=== PATIENT | female | born 1955 | race Caucasian/White ===

== ENCOUNTER 2017-03-19 11:17 | Inpatient (IN) ==
--- NOTE | 2017-03-19 16:35 | Emergency Department Note ---
Disposition Clinical Impression: Unstable angina Hypertension Qualifiers: Hypertension type: unspecified Qualified Code(s): I10 - Essential (primary) hypertension Disposition: Admitted As Inpatient Condition: Fair Time of Disposition: 19:25 General Adult HPI - General Chief complaint: ED Extremity Problem,Nontraumatic Stated complaint: bilat leg swelling Time Seen by Provider: 03/19/17 15:32 Source: patient Mode of arrival: ambulatory Limitations: no limitations Nursing Notes Reviewed: Yes Vital Signs Reviewed: Yes - History of Present Illness HPI Narrative: 62-year-old female presents to the emergency department for increasing bilateral pedal edema as well as elevated blood pressures as measured by home BP cuff. Patient cites systolic pressures above 200 at home; patient also states that usually has some measure of pedal edema, but that has been worse lately. For about a week, patient tells me that she does have a sore sensation in her left anterolateral chest wall that has been constantly present for about 6 days; this particular soreness is not provoked motion or exertion and patient denies any palliative factors, and does not radiate to arms or shoulders/jaw. Patient does state that within the last month, she had an episode of severe chest pain radiating into her back during which time she had diaphoresis, headache, and nausea. Did not have cardiovascular assessment at that time. Denies new headache, blurred vision, syncope, confusion, retro sternal chest pain, palpitations, acute shortness of air, nausea, vomiting, or dysuria. No known active malignancy, no limb paralysis, no recent surgeries or other ambulatory limitations, no localized tenderness in her lower extremities, no previous DVT, or hemoptysis. Legs are also equally edematous. Wells DVT: 0 Wells PE: 0 Pain Scale: 0 - Related Data Home Medications Medication Instructions Recorded Confirmed Fluticasone/Salmeterol [Advair 1 each IH BID 04/09/15 03/19/17 250-50 Diskus] Ibuprofen [Motrin] 800 mg PO Q8HR 04/09/15 03/19/17 LORazepam [Ativan] 0.5 mg PO BID PRN 04/09/15 03/19/17 Montelukast [Singulair] 10 mg PO QPM 04/09/15 03/19/17 Albuterol Sulfate [Proair Hfa] 2 puff IH Q4H PRN 03/19/17 03/19/17 Aspirin Enteric Coated [Aspirin EC] 81 mg PO DAILY 03/19/17 03/19/17 Furosemide [Lasix] 40 mg PO DAILY 03/19/17 03/19/17 Lisinopril [Zestril] 40 mg PO DAILY 03/19/17 03/19/17 Metoprolol Succinate 100 mg PO QPM 03/19/17 03/19/17 Tizanidine HCl 4 mg PO BID PRN 03/19/17 03/19/17 Allergies Allergy/AdvReac Type Severity Reaction Status Date / Time codeine Allergy Hives Verified 07/18/15 01:53 Penicillins [PCN] Allergy Hives Verified 04/09/15 01:16 Review of Systems: As Per HPI Past Medical History - Past Medical History Attestation: Yes The following information was validated with the patient. Medical history: Reports: aortic aneurysm, asthma, COPD, GERD, hyperlipidemia, hypertension Surgical history: Reports: orthopedic, other Psychiatric history: Reports: anxiety [employer] history: Reports: bilateral tubal ligation - Social History Smoking Status: Current every day smoker Smokeless Tobacco Status: No Alcohol use: Reports: occasionally Drug use: Reports: none Physical Exam - General Limitations: no limitations General appearance: alert, in no apparent distress - Head Head exam: atraumatic - Eye Eye exam: Present: PERRL, EOMI. Absent: scleral icterus, conjunctival injection - ENT ENT exam: mucous membranes moist - Neck Neck exam: Present: full ROM - Respiratory Respiratory exam: Present: normal lung sounds bilaterally - Cardiovascular Cardiovascular exam: Present: regular rate, normal rhythm. Absent: systolic murmur, diastolic murmur, +S3, +S4 - Abdominal Exam Abdominal exam: Present: soft - Extremities Exam Extremities exam: Present: normal capillary refill, pedal edema (No erythema, rubor, calor, or hemostatic skin color change). Absent: calf tenderness - Neurological Exam Neurological exam: Present: alert, oriented X3, normal gait. Absent: motor sensory deficit - Psychiatric Psychiatric exam: Present: normal affect - Skin Skin exam: Present: warm, dry, intact. Absent: cyanosis, diaphoresis, erythema , pallor Course Course Narrative: Ordered EKG which demonstrated new findings compared to prior EKG in July 2016; notably inverted T waves and multiple leads. Troponin negative. No acute cardiovascular equivalents. Hemoglobin, basic, troponin, and BNP are all within normal limits. Chest x-ray is negative. Patient was given sublingual nitro which did improve chest pain. Vital Signs Temperature 98 F 03/19/17 12:02 Pulse Rate 83 03/19/17 12:02 Respiratory Rate 18 03/19/17 12:02 Blood Pressure 191/106 03/19/17 12:02 O2 Sat by Pulse Oximetry 93 03/19/17 12:02 Temperature 97.5 F L 03/19/17 20:46 Pulse Rate 78 03/19/17 20:46 Respiratory Rate 17 03/19/17 20:46 Blood Pressure 211/113 03/19/17 20:46 O2 Sat by Pulse Oximetry 95 03/19/17 20:46 Oxygen Delivery Oxygen Delivery Nasal Cannula Medical Decision Making - MDM Narrative Medical decision making narrative: 3 EKG evidence of prior [place] as well as concerning previous episode within the month, patient would benefit from immediate evaluation by cardiology for acute coronary artery disease. I feel the patient is unsafe at this time to be sent home due to unknown degree of risk of recurrent and potentially fatal myocardial infarction. HEART score = 4. Discussed patient with hospitalist, Dr. Haddad, who agrees to admit patient for observation and cardiology consult. - Lab Data Lab results reviewed: Yes I reviewed the patient's lab results. Lab results narrative: Laboratory Last Values Hgb 15.1 g/dL (11.5-15.4) 03/19/17 16:57 Sodium 142 mEq/L (136-145) 03/19/17 16:57 Potassium 3.2 mEq/L (3.5-4.5) L 03/19/17 16:57 Chloride 105 mEq/L (98-109) 03/19/17 16:57 Carbon Dioxide 26 mEq/L (19-29) 03/19/17 16:57 BUN 15 mg/dL (7-20) 03/19/17 16:57 Creatinine 0.74 mg/dL (0.57-1.11) 03/19/17 16:57 Est GFR ( Amer) > 60 (> 60) 03/19/17 16:57 Est GFR (Non-Af Amer) > 60 (> 60) 03/19/17 16:57 BUN/Creatinine Ratio 20 (6-26) 03/19/17 16:57 Glucose 108 mg/dL (70-99) H 03/19/17 16:57 Calculated Osmolality 295 (280-300) 03/19/17 16:57 Calcium 9.3 mg/dL (8.6-10.8) 03/19/17 16:57 Troponin I 0.00 ng/mL (0-0.03) 03/19/17 16:57 B-Natriuretic Peptide 135 pg/mL (0-100) H 03/19/17 16:57 Result diagrams: 03/19/17 16:57 03/19/17 16:57 Lab Results 03/19/17 03/19/17 03/19/17 Range/Units 16:57 16:57 16:57 Hgb 15.1 (11.5-15.4) g/dL Sodium 142 (136-145) mEq/L Potassium 3.2 L (3.5-4.5) mEq/L Chloride 105 (98-109) mEq/L Carbon Dioxide 26 (19-29) mEq/L BUN 15 (7-20) mg/dL Creatinine 0.74 (0.57-1.11) mg/dL Est GFR ( Amer) > 60 (> 60) Est GFR (Non-Af Amer) > 60 (> 60) BUN/Creatinine Ratio 20 (6-26) Glucose 108 H (70-99) mg/dL Calculated Osmolality 295 (280-300) Calcium 9.3 (8.6-10.8) mg/dL Troponin I 0.00 (0-0.03) ng/mL B-Natriuretic Peptide (0-100) pg/mL 03/19/17 Range/Units 16:57 Hgb (11.5-15.4) g/dL Sodium (136-145) mEq/L Potassium (3.5-4.5) mEq/L Chloride (98-109) mEq/L Carbon Dioxide (19-29) mEq/L BUN (7-20) mg/dL Creatinine (0.57-1.11) mg/dL Est GFR ( Amer) (> 60) Est GFR (Non-Af Amer) (> 60) BUN/Creatinine Ratio (6-26) Glucose (70-99) mg/dL Calculated Osmolality (280-300) Calcium (8.6-10.8) mg/dL Troponin I (0-0.03) ng/mL B-Natriuretic Peptide 135 H (0-100) pg/mL - Radiology Data Radiology results reviewed: Yes I reviewed the patient's radiology results. Chest X-Ray 03/19/17 16:42 IMPRESSION: No acute cardiopulmonary process. D/ / 03/19/2017 17:53:34 Crystal Pena MD / Tyra Skinner Interpreting Provider: Crystal Pena MD - Core Measures AMI Core Measures Followed: No Measure Exclusions: not indicated
[2017-03-19] MEDS ORDERED: Aspirin 81 MG TAB.CHEW PO STA (16:42)
--- NOTE | 2017-03-19 16:47 | Emergency Department Note ---
START Narrative - START START: I examined this patient and my medical decision-making was reviewed with the Resident Physician. I agree with the documented findings, disposition and treatment plan as described except to the extent set forth below. Pain as she has had for the last week under her left costal margin does not sound at all ischemic. However, she had an episode about a month ago that sounds very concerning for ischemic event. She did not present to the ED at that time, says "I figured I lived, so I will just a home." She told me she thinks this was a heart attack. She had chest pain and back pain and broke out in a sweat, sounds concerning. Since then, she has had severe fatigue, developed lower extremity swelling to the point that she could not get her shoes on. She says the swelling is improved over the last few days. Today she comes in because her blood pressure was markedly elevated, although she had developed no new symptoms with his blood pressure elevation. Her EKG shows Q waves in the inferior leads and nonspecific T-wave changes in the inferior leads that are new compared to her prior EKG in July of this year. She seems somewhat dyspneic, relates this to her cigarette smoking. Says that her breathing is not changed compared to her baseline. I am very suspicious that she had an TN a month ago, as she also believes that she did. Workup has been initiated, aspirin has been ordered.
[2017-03-19 17:26] LABS: BUN/Creatinine Ratio 20 (6-26); Blood Urea Nitrogen 15 mg/dL (7-20); Calcium 9.3 mg/dL (8.6-10.8); Carbon Dioxide 26 mEq/L (19-29); Chloride 105 mEq/L (98-109); Glucose 108 mg/dL (70-99); Osmolality,Calculated 295 (280-300); Potassium 3.2 mEq/L (3.5-4.5); Sodium 142 mEq/L (136-145); eGFR For African Americans > 60 (> 60); eGFR For Non-African Americans > 60 (> 60)
[2017-03-19] MEDS: Nitroglycerin 0.4 MG TAB.SUBL SL SCH ×3 (18:43→18:52)
[2017-03-19] MEDS ORDERED: *HR* Morphine 2 MG/ML SYRINGE IVP PRN (19:34)
[2017-03-19] MEDS ORDERED: Naloxone 0.4 MG/ML INJ IVP PRN (19:34)
[2017-03-19] MEDS ORDERED: Ondansetron 4 MG/2 ML VIAL IVP PRN (19:34)
[2017-03-19] MEDS ORDERED: *HR* Promethazine 25 MG/ML VIAL IVP PRN (19:34)
[2017-03-19] MEDS ORDERED: Acetaminophen 325 MG TABLET PO PRN (19:34)
--- NOTE | 2017-03-19 21:16 | Internal Med History&Physical ---
Date of Encounter: 03/19/17 Time of Encounter: 21:00 Assessment and Plan (1) Hypertensive emergency Current visit: Yes Status: Acute Will admit the pt into Tele her HTN emergency might due to COPD exacerbation will give her PO home BP mds first Also started her on Norvasc 10mg Will give hydralazine IV PRN If BP still does not improve will consider starting nicardipine gtt (2) COPD with acute exacerbation Current visit: Yes Status: Acute started on IV steroids Duoneb + O2 No need of abx (3) Chest pain Current visit: Yes Status: Acute cont on Tele check serial troponin so far negative troponin EKG reviewed - showing non specific T wave changes in inferior leads will start pt on ASA, Nitro PRN and Morphine IV PRN for pain Will check FLP in AM May need stress test once her SOB improves Qualifiers: Qualified Code(s): R07.9 - Chest pain, unspecified (4) Diastolic CHF, acute on chronic Current visit: Yes Status: Acute Does have mild CHF exacerbation Reviewed her Echo from 08/24 showing noral LVEF, mild diastolic dysfunction started on IV Lasix 40mg BID cont ACEI, Metoprolol, ASA and Statin (5) HLD (hyperlipidemia) Current visit: Yes Status: Acute will check FLP In AM Qualifiers: Qualified Code(s): E78.5 - Hyperlipidemia, unspecified (6) Morbid obesity with BMI of 40.0-44.9, adult Current visit: Yes Status: Acute Counseled to loose weight (7) Tobacco dependence Current visit: Yes Status: Acute counseled to loose weight placed her on nicotine patch Internal Medicine - H&P: HPI Chief complaint: Elevated BP / SANTOS / SOB Admitted From: Emergency Dept Plans for Post Hospital Care: Home History of present illness: Ms. Moses is a 62 year old female with known PMH of COPD not on home O2 dependent , HTN, HLD, Chronic Diastolic CHF, chronic tobacco dependence pt presented to the emergency department for increasing bilateral pedal edema as well as elevated blood pressures as measured by home BP cuff. Patient cites systolic pressures above 200 at home; patient also states that usually has some measure of pedal edema, but that has been worse lately. She denied any CP before she came to ER, however in the ER she had a bried episode of CP, sharp like pain, 6/10 on severity, non radiating lasted for few minutes after Nitro SL. She also c/o progressively worsening SOB, denied any cough or expectoration. Past Med Surg Social Fam HX - Past Medical History Medical history: aortic aneurysm, asthma, COPD, GERD, hyperlipidemia, hypertension Psychiatric history: anxiety - Past Surgical History Surgical History: orthopedic, other - Social History Smoking Status: Current every day smoker Smokeless Tobacco Status: No Alcohol use: occasionally Drug use: none Internal Medicine - H&P: Meds Fluticasone/Salmeterol [Advair 250-50 Diskus] 1 each IH BID 04/09/15 [History] Ibuprofen [Motrin] 800 mg PO Q8HR 04/09/15 [History] LORazepam [Ativan] 0.5 mg PO BID PRN 04/09/15 [History] Montelukast [Singulair] 10 mg PO QPM 04/09/15 [History] Albuterol Sulfate [Proair Hfa] 2 puff IH Q4H PRN 03/19/17 [History] Aspirin Enteric Coated [Aspirin EC] 81 mg PO DAILY 03/19/17 [History] Furosemide [Lasix] 40 mg PO DAILY 03/19/17 [History] Lisinopril [Zestril] 40 mg PO DAILY 03/19/17 [History] Metoprolol Succinate 100 mg PO QPM 03/19/17 [History] Tizanidine HCl 4 mg PO BID PRN 03/19/17 [History] 3 Allergy/AdvReac Type Severity Reaction Status Date / Time codeine Allergy Hives Verified 07/18/15 01:53 Penicillins [PCN] Allergy Hives Verified 04/09/15 01:16 All Systems PM: A 10-system review of systems was performed and is negative for pertinent findings except as documented above in the HPI. Review of systems: All the systems are reviewed everything is benign except the systems and symptoms I mentioned in the history of present illness - Constitutional Vitals: Temp Pulse Resp BP Pulse Ox 97.5 F L 78 17 211/113 95 03/19/17 20:46 03/19/17 20:46 03/19/17 20:46 03/19/17 20:46 03/19/17 20:46 General appearance: Present: A&O X 3, no acute distress, answers questions appropriately - Head Head exam: Present: atraumatic, normal inspection - Respiratory Respiratory exam: Present: decreased breath sounds, wheezes (severe diffuse wheezing noticed b/l). Absent: rales, respiratory distress, rhonchi - Cardiovascular Cardiovascular exam: Present: RRR, +S1, +S2. Absent: gallop, systolic murmur - GI/Abdominal GI/Abdominal exam: Present: normal bowel sounds, soft. Absent: distended, rebound, rigid, tenderness - Extremities Exam Extremities exam: Present: pedal edema (1). Absent: calf tenderness, tenderness - Back Exam Back exam: Absent: CVA tenderness (L), CVA tenderness (R) - Psychiatric Psychiatric exam: Present: normal affect, normal mood Internal Med - H&P Results - Labs CBC & Chem 7: 03/19/17 16:57 03/19/17 16:57
[2017-03-19] MEDS: Nicotine 21 MG PATCH.TD24 TD SCH (21:24)
[2017-03-19] MEDS: *HR* LORazepam 0.5 MG TABLET PO SCH (21:24)
[2017-03-19] MEDS: amLODIPine 5 MG TABLET PO SCH (21:24)
[2017-03-19] MEDS: MethylPREDNISolone 40 MG/ML VIAL IVP SCH (22:54)
[2017-03-19] MEDS: *HR* HYDROcodone/Acet 5/325 mg TABLET PO PRN (22:54)
[2017-03-19] MEDS: Ipratropium/Albuterol Neb 3 ML IH SCH (23:41)
[2017-03-20 00:52] LABS: Alanine Aminotransferase 16 Units/L (0-55); Albumin 3.4 g/dL (3.5-5.0); Albumin/Globulin Ratio 1.1 (1.1-2.2); Alkaline Phosphatase 105 Units/L (38-126); Aspartate Amino Transferase 15 Units/L (5-34); BUN/Creatinine Ratio 24 (6-26); Bilirubin,Total 0.6 mg/dL (0.2-1.2); Blood Urea Nitrogen 19 mg/dL (7-20); Calcium 9.4 mg/dL (8.6-10.8); Carbon Dioxide 23 mEq/L (19-29); Chloride 107 mEq/L (98-109); Chol/HDL Ratio 4.6 (0-4.9); Cholesterol 233 mg/dL (< 200); Globulin 3.2 g/dL (2.4-3.5); Glucose 136 mg/dL (70-99); HDL Cholesterol 51 mg/dL (40-59); LDL Cholesterol,Calculated 149 mg/dL (0-99); Magnesium 1.9 mg/dL (1.6-2.6); Osmolality,Calculated 298 (280-300); Sodium 142 mEq/L (136-145); Total Protein 6.6 g/dL (6.0-8.3); Triglycerides 164 mg/dL (< 150); eGFR For African Americans > 60 (> 60); eGFR For Non-African Americans > 60 (> 60)
[2017-03-20 00:53] LABS: Potassium 3.5 mEq/L (3.5-4.5)
[2017-03-20] MEDS: Ipratropium/Albuterol Neb 3 ML IH SCH ×6 (03:43→23:25)
[2017-03-20] MEDS: *HR* Enoxaparin 40 MG/0.4 ML SYRINGE SQ SCH (05:51)
[2017-03-20] MEDS: MethylPREDNISolone 40 MG/ML VIAL IVP SCH ×4 (05:51→23:41)
[2017-03-20 06:22] LABS: Basophils % 0.4 %; Eosinophils % 0.1 %; Hematocrit 48.3 % (35.3-44.9); Hemoglobin 16.1 g/dL (11.5-15.4); Immature Granulocytes % 0.7 % (0-4); Mean Corpuscular HGB Conc 33.3 g/dL (31.6-35.5); Mean Corpuscular Hemoglobin 30.5 pg (28.0-33.3); Mean Corpuscular Volume 91.5 fL (83.0-100.0); Mean Platelet Volume 9.6 fL (9.4-12.4); Monocytes # 0.1 K/mcL (0.0-1.3); Monocytes % 1.2 %; Neutrophils # 7.1 K/mcL (1.6-8.9); Platelet Count 283 K/mcL (140-400); Red Blood Count 5.28 M/mcL (3.82-4.97); Red Cell Distribution Width 15.7 % (11.5-14.5); Segmented Neutrophils % 85.6 %
[2017-03-20] MEDS: tiZANidine 4 MG TABLET PO SCH ×2 (08:13→21:36)
[2017-03-20] MEDS: *HR* LORazepam 0.5 MG TABLET PO SCH ×2 (08:13→21:36)
[2017-03-20] MEDS: Lisinopril 20 MG TABLET PO SCH (08:13)
[2017-03-20] MEDS: Nicotine 21 MG PATCH.TD24 TD SCH (08:14)
[2017-03-20] MEDS: amLODIPine 5 MG TABLET PO SCH (08:14)
--- NOTE | 2017-03-20 08:15 | Internal Med Progress Note ---
<Mode Montiel P - Last Filed: 03/20/17 14:18> Date of Encounter: 03/20/17 - Constitutional Vitals: Temp Pulse Resp BP Pulse Ox 97.7 F 87 18 141/66 95 03/20/17 10:22 03/20/17 10:22 03/20/17 11:39 03/20/17 10:22 03/20/17 11:39 Internal Medicine: Result - Labs CBC & Chem 7: 03/20/17 05:53 03/20/17 00:26 Labs: Short CBC 03/20/17 Range/Units 05:53 WBC 8.3 (4.3-11.1) K/mcL Hgb 16.1 H (11.5-15.4) g/dL Hct 48.3 H (35.3-44.9) % Plt Count 283 (140-400) K/mcL Neutrophils # 7.1 (1.6-8.9) K/mcL BMP 03/20/17 00:26 Sodium 142 Potassium 3.5 Chloride 107 Carbon Dioxide 23 BUN 19 Creatinine 0.80 Glucose 136 H Calcium 9.4 Cardiac Enzymes 03/20/17 03/20/17 Range/Units 00:26 05:53 Troponin I 0.00 0.02 (0-0.03) ng/mL Liver Function 03/20/17 Range/Units 00:26 Total Bilirubin 0.6 (0.2-1.2) mg/dL AST 15 (5-34) Units/L ALT 16 (0-55) Units/L Alkaline Phosphatase 105 (38-126) Units/L Albumin 3.4 L (3.5-5.0) g/dL - Impressions Impressions Echocardiogram 03/20/17 21:11 Impressions: LVEF 65%. Moderate concentric left ventricular hypertrophy. Mild left ventricular diastolic dysfunction. No significant valvular dysfunction. Left Ventricular Wall Motion: Rest Echo Findings All wall segments showed normal motion. Findings: Study Quality * Technically adequate exam. ECG Findings * Normal sinus rhythm. Left Ventricle * LVEF 65%. * Moderate concentric left ventricular hypertrophy. * Mild left ventricular diastolic dysfunction. Right Ventricle * Normal right ventricular structure and function. Right Atrium * Normal right atrial size. Interatrial Septum * No evidence of PFO by color Doppler. Aortic Valve * No aortic regurgitation. * No aortic stenosis. * Normal aortic valve function. * Aortic valve not well visualized. Mitral Valve * Normal mitral valve structure and function. Tricuspid Valve * Trace tricuspid regurgitation. * Estimated RA pressure is 5 mmHg. Pulmonic Valve * Pulmonic valve not well visualized. Aorta * Normally sized aortic root. IVC * Normal IVC dimensions and inspiratory collapse. Pericardium * The pericardium appears normal. Consult Discharge Plan - Plan Referrals: Kindra Holliday, [facility] ARCHITECT [Primary Care Provider] - - Attending Attestation I examined this patient and my medical decision-making was reviewed with the Resident Physician. I agree with the documented findings, disposition and treatment plan as described except to the extent set forth below. Patient seen and examined. Chart reviewed. Patient is admitted for hypertensive urgency. Blood pressure is getting under control. Plan: We will obtain the old records regarding aneurysm in the ascending aorta. We will continue present antihypertensive therapy. <Denia Razoty - Last Filed: 03/20/17 16:44> Date of Encounter: 03/20/17 Time of Encounter: 10:09 - Assessment and plan (1) Hypertensive emergency Current Visit: Yes Status: Acute Assessment and plan: Continuous cardiac monitoring Continue home blood pressure meds - metoprolol, lisinopril, lasix Norvasc 10 mg added on admission Hydralazine IV PRN (2) COPD with acute exacerbation Current Visit: Yes Status: Acute Assessment and plan: methylprednisolone, duonebs q4h while awake (3) Diastolic CHF, acute on chronic Current Visit: Yes Status: Acute Assessment and plan: Continue aspirin, statin, ACEI, metoprolol Echocardiogram report pending (4) HLD (hyperlipidemia) Current Visit: Yes Status: Acute Qualifiers: Hyperlipidemia type: mixed hyperlipidemia Qualified Code(s): E78.2 - Mixed hyperlipidemia (5) Tobacco dependence Current Visit: Yes Status: Acute Assessment and plan: nicotine patch (6) Morbid obesity with BMI of 40.0-44.9, adult Current Visit: Yes Status: Acute (7) Chest pain Current Visit: Yes Status: Resolved Assessment and plan: resolved Qualifiers: Chest pain type: unspecified Qualified Code(s): R07.9 - Chest pain, unspecified - Subjective Interval history: Patient states she is wore out. She has been awakened multiple times throughout the night for various medical interventions and testing. - Constitutional Vitals: Temp Pulse Resp BP Pulse Ox 97.8 F 112 14 182/96 93 03/20/17 06:43 03/20/17 06:43 03/20/17 06:43 03/20/17 06:43 03/20/17 06:43 General appearance: Present: A&O X 3, no acute distress, answers questions appropriately - Head Head exam: Present: atraumatic, normocephalic - Eye Eye exam: Present: PERRL, conjuntiva pink, sclera anicteric Pupils: Present: PERRL - Neck Neck exam general surgery: Present: supple, trachea midline - Respiratory Respiratory exam: Present: decreased breath sounds, wheezes (scattered throughout) - Cardiovascular Cardiovascular exam: Present: RRR, +S1, +S2. Absent: diastolic murmur, gallop, rubs, systolic murmur - GI/Abdominal GI/Abdominal exam: Present: normal bowel sounds, soft, no peritoneal signs. Absent: distended, tenderness - Extremities Exam Extremities exam: Present: warm. Absent: calf tenderness, cyanotic, pedal edema - Neurological Exam Neurological exam: Present: alert, oriented X3. Absent: pronater drift, facial droop, speech deficit - Skin Skin exam: Present: dry, intact Internal Medicine: Result - Labs CBC & Chem 7: 03/20/17 05:53 03/20/17 00:26 Labs: Short CBC 03/20/17 Range/Units 05:53 WBC 8.3 (4.3-11.1) K/mcL Hgb 16.1 H (11.5-15.4) g/dL Hct 48.3 H (35.3-44.9) % Plt Count 283 (140-400) K/mcL Neutrophils # 7.1 (1.6-8.9) K/mcL BMP 03/20/17 00:26 Sodium 142 Potassium 3.5 Chloride 107 Carbon Dioxide 23 BUN 19 Creatinine 0.80 Glucose 136 H Calcium 9.4 Cardiac Enzymes 03/20/17 03/20/17 Range/Units 00:26 05:53 Troponin I 0.00 0.02 (0-0.03) ng/mL Liver Function 03/20/17 Range/Units 00:26 Total Bilirubin 0.6 (0.2-1.2) mg/dL AST 15 (5-34) Units/L ALT 16 (0-55) Units/L Alkaline Phosphatase 105 (38-126) Units/L Albumin 3.4 L (3.5-5.0) g/dL
[2017-03-20] MEDS ORDERED: Budesonide/Formoterol 80/4.5 MDI IH SCH (10:00)
[2017-03-20] MEDS ORDERED: niCARdipine 40 MG/200 ML MLS IVC SCH (10:15)
[2017-03-20] MEDS: Furosemide 40 MG TABLET PO SCH (12:54)
--- NOTE | 2017-03-20 16:39 | Electrocardiograph Report ---
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
--- NOTE | 2017-03-20 16:44 | Electrocardiograph Report ---
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
[2017-03-20] MEDS: Nitroglycerin 0.4 MG TAB.SUBL SL SCH (17:15)
[2017-03-20] MEDS: *HR* HYDROcodone/Acet 5/325 mg TABLET PO PRN (23:41)
[2017-03-21] MEDS: Ipratropium/Albuterol Neb 3 ML IH SCH ×2 (04:13→07:50)
[2017-03-21] MEDS: *HR* Enoxaparin 40 MG/0.4 ML SYRINGE SQ SCH (05:45)
[2017-03-21] MEDS: MethylPREDNISolone 40 MG/ML VIAL IVP SCH (05:46)
[2017-03-21 05:50] LABS: Basophils % 0.2 %; Hematocrit 45.4 % (35.3-44.9); Hemoglobin 14.9 g/dL (11.5-15.4); Immature Granulocytes % 1.1 % (0-4); Lymphocytes # 1.3 K/mcL (0.6-4.6); Lymphocytes % 6.5 %; Mean Corpuscular HGB Conc 32.8 g/dL (31.6-35.5); Mean Corpuscular Hemoglobin 30.5 pg (28.0-33.3); Mean Corpuscular Volume 92.8 fL (83.0-100.0); Mean Platelet Volume 9.6 fL (9.4-12.4); Monocytes # 0.8 K/mcL (0.0-1.3); Monocytes % 3.9 %; Neutrophils # 17.2 K/mcL (1.6-8.9); Platelet Count 299 K/mcL (140-400); Red Blood Count 4.89 M/mcL (3.82-4.97); Red Cell Distribution Width 16.1 % (11.5-14.5); Segmented Neutrophils % 88.3 %
[2017-03-21 06:01] LABS: BUN/Creatinine Ratio 32 (6-26); Blood Urea Nitrogen 25 mg/dL (7-20); Calcium 9.6 mg/dL (8.6-10.8); Carbon Dioxide 24 mEq/L (19-29); Chloride 106 mEq/L (98-109); Glucose 168 mg/dL (70-99); Osmolality,Calculated 298 (280-300); Potassium 3.7 mEq/L (3.5-4.5); Sodium 140 mEq/L (136-145); eGFR For African Americans > 60 (> 60); eGFR For Non-African Americans > 60 (> 60)
--- NOTE | 2017-03-21 06:15 | Internal Med Progress Note ---
<Denia Razo - Last Filed: 03/21/17 11:22> Date of Encounter: 03/21/17 Time of Encounter: 08:49 - Assessment and plan (1) Hypertensive emergency Current Visit: Yes Status: Resolved Assessment and plan: resolved, still with HTN blood pressures are close to patient's normal, however patient is tachycardic this morning increase metoprolol from 25 mg to 50 mg daily Continuous cardiac monitoring Continue home blood pressure meds - metoprolol (increased dose), lisinopril, lasix Norvasc 10 mg added on admission Hydralazine IV PRN (2) Neutrophilic leukocytosis Current Visit: Yes Status: Acute Assessment and plan: WBC of 19.5, up from 8.3 yesterday most likely reactive due to steroids blood cultures drawn (3) COPD with acute exacerbation Current Visit: Yes Status: Ruled-out Assessment and plan: patient states that this is her normal breathing, she is not having shortness of breath of difficulty breathing (4) Diastolic CHF, acute on chronic Current Visit: Yes Status: Ruled-out Assessment and plan: Continue aspirin, statin, ACEI, metoprolol Echo: EF 65%, moderate concentric left ventricle hypertrophy, mild left ventricle diastolic dysfunction. (5) HLD (hyperlipidemia) Current Visit: Yes Status: Acute Qualifiers: Hyperlipidemia type: mixed hyperlipidemia Qualified Code(s): E78.2 - Mixed hyperlipidemia (6) Tobacco dependence Current Visit: Yes Status: Acute Assessment and plan: nicotine patch (7) Morbid obesity with BMI of 40.0-44.9, adult Current Visit: Yes Status: Acute (8) Chest pain Current Visit: Yes Status: Resolved Assessment and plan: resolved Qualifiers: Chest pain type: unspecified Qualified Code(s): R07.9 - Chest pain, unspecified - Subjective Interval history: Patient states she is feeling better. She wants to shower this morning. Denies shortness of breath, chest pain. Last bowel movement 4 days prior - she takes mag ox at home due to chronic constipation. - Constitutional Vitals: Temp Pulse Resp BP Pulse Ox 98.2 F 107 16 154/72 96 03/21/17 04:00 03/21/17 04:00 03/21/17 04:00 03/21/17 04:00 03/21/17 04:00 General appearance: Present: A&O X 3, no acute distress, answers questions appropriately - Head Head exam: Present: atraumatic, normocephalic - Eye Eye exam: Present: PERRL, conjuntiva pink, sclera anicteric Pupils: Present: PERRL - Neck Neck exam general surgery: Present: supple, trachea midline - Respiratory Respiratory exam: Present: decreased breath sounds, wheezes (scattered throughout) - Cardiovascular Cardiovascular exam: Present: +S1, +S2, tachycardia. Absent: distant heart sounds, systolic murmur - GI/Abdominal GI/Abdominal exam: Present: normal bowel sounds, soft, no peritoneal signs. Absent: distended, tenderness - Extremities Exam Extremities exam: Present: warm. Absent: calf tenderness, cyanotic, pedal edema - Neurological Exam Neurological exam: Present: alert, oriented X3. Absent: pronater drift, facial droop, speech deficit - Skin Skin exam: Present: dry, intact, warm Internal Medicine: Result - Labs CBC & Chem 7: 03/21/17 08:58 03/21/17 05:34 Labs: Short CBC 03/20/17 03/21/17 Range/Units 05:53 05:34 WBC 8.3 19.5 H D (4.3-11.1) K/mcL Hgb 16.1 H 14.9 (11.5-15.4) g/dL Hct 48.3 H 45.4 H (35.3-44.9) % Plt Count 283 299 (140-400) K/mcL Neutrophils # 7.1 17.2 H (1.6-8.9) K/mcL BMP 03/21/17 05:34 Sodium 140 Potassium 3.7 Chloride 106 Carbon Dioxide 24 BUN 25 H Creatinine 0.77 Glucose 168 H Calcium 9.6 Cardiac Enzymes 03/20/17 Range/Units 05:53 Troponin I 0.02 (0-0.03) ng/mL - Impressions Impressions Echocardiogram 03/20/17 21:11 Impressions: LVEF 65%. Moderate concentric left ventricular hypertrophy. Mild left ventricular diastolic dysfunction. No significant valvular dysfunction. Left Ventricular Wall Motion: Rest Echo Findings All wall segments showed normal motion. Findings: Study Quality * Technically adequate exam. ECG Findings * Normal sinus rhythm. Left Ventricle * LVEF 65%. * Moderate concentric left ventricular hypertrophy. * Mild left ventricular diastolic dysfunction. Right Ventricle * Normal right ventricular structure and function. Right Atrium * Normal right atrial size. Interatrial Septum * No evidence of PFO by color Doppler. Aortic Valve * No aortic regurgitation. * No aortic stenosis. * Normal aortic valve function. * Aortic valve not well visualized. Mitral Valve * Normal mitral valve structure and function. Tricuspid Valve * Trace tricuspid regurgitation. * Estimated RA pressure is 5 mmHg. Pulmonic Valve * Pulmonic valve not well visualized. Aorta * Normally sized aortic root. IVC * Normal IVC dimensions and inspiratory collapse. Pericardium * The pericardium appears normal. Consult Discharge Plan - Plan Referrals: Kindra Holliday GYM INSTRUCTOR [Primary Care Provider] - <Mode Montiel P - Last Filed: 03/21/17 18:51> Date of Encounter: 03/21/17 - Constitutional Vitals: Temp Pulse Resp BP Pulse Ox 98.1 F 86 16 168/78 96 03/21/17 15:37 03/21/17 15:37 03/21/17 15:37 03/21/17 18:04 03/21/17 18:20 Internal Medicine: Result - Labs CBC & Chem 7: 03/21/17 08:58 03/21/17 05:34 Labs: Short CBC 03/21/17 03/21/17 Range/Units 05:34 08:58 WBC 19.5 H D 20.7 H (4.3-11.1) K/mcL Hgb 14.9 (11.5-15.4) g/dL Hct 45.4 H (35.3-44.9) % Plt Count 299 (140-400) K/mcL Neutrophils # 17.2 H (1.6-8.9) K/mcL BMP 03/21/17 05:34 Sodium 140 Potassium 3.7 Chloride 106 Carbon Dioxide 24 BUN 25 H Creatinine 0.77 Glucose 168 H Calcium 9.6 - Attending Attestation I examined this patient and my medical decision-making was reviewed with the Resident Physician. I agree with the documented findings, disposition and treatment plan as described except to the extent set forth below. Blood pressure is progressively getting better. We will obtain the records regarding aneurysmal changes. If there is no rapid growth/increased, then home tomorrow
[2017-03-21] MEDS: amLODIPine 5 MG TABLET PO SCH (09:46)
[2017-03-21] MEDS ORDERED: Nitroglycerin 0.4 MG TAB.SUBL SL PRN (09:46)
[2017-03-21] MEDS: Lisinopril 20 MG TABLET PO SCH (09:47)
[2017-03-21] MEDS: *HR* LORazepam 0.5 MG TABLET PO SCH ×2 (09:47→21:12)
[2017-03-21] MEDS: Furosemide 40 MG TABLET PO SCH (09:47)
[2017-03-21] MEDS: tiZANidine 4 MG TABLET PO SCH ×2 (09:47→21:12)
[2017-03-21] MEDS: Nicotine 21 MG PATCH.TD24 TD SCH (09:47)
[2017-03-22 05:20] LABS: Basophils % 0.2 %; Eosinophils % 0.2 %; Hematocrit 44.5 % (35.3-44.9); Hemoglobin 14.9 g/dL (11.5-15.4); Immature Granulocytes % 1.1 % (0-4); Lymphocytes # 3.5 K/mcL (0.6-4.6); Lymphocytes % 24.7 %; Mean Corpuscular HGB Conc 33.5 g/dL (31.6-35.5); Mean Corpuscular Hemoglobin 30.4 pg (28.0-33.3); Mean Corpuscular Volume 90.8 fL (83.0-100.0); Mean Platelet Volume 9.5 fL (9.4-12.4); Monocytes % 6.7 %; Neutrophils # 9.6 K/mcL (1.6-8.9); Platelet Count 264 K/mcL (140-400); Red Cell Distribution Width 16.4 % (11.5-14.5); Segmented Neutrophils % 67.1 %
[2017-03-22 05:42] LABS: BUN/Creatinine Ratio 32 (6-26); Blood Urea Nitrogen 22 mg/dL (7-20); Calcium 8.9 mg/dL (8.6-10.8); Carbon Dioxide 24 mEq/L (19-29); Chloride 106 mEq/L (98-109); Glucose 102 mg/dL (70-99); Osmolality,Calculated 296 (280-300); Potassium 3.4 mEq/L (3.5-4.5); Sodium 141 mEq/L (136-145); eGFR For African Americans > 60 (> 60); eGFR For Non-African Americans > 60 (> 60)
[2017-03-22] MEDS: *HR* Enoxaparin 40 MG/0.4 ML SYRINGE SQ SCH (06:03)
[2017-03-22] MEDS: *HR* HYDROcodone/Acet 5/325 mg TABLET PO PRN (06:25)
[2017-03-22] MEDS: tiZANidine 4 MG TABLET PO SCH ×2 (09:21→21:03)
[2017-03-22] MEDS: *HR* LORazepam 0.5 MG TABLET PO SCH ×2 (09:22→21:03)
[2017-03-22] MEDS: Furosemide 40 MG TABLET PO SCH (09:22)
[2017-03-22] MEDS: amLODIPine 5 MG TABLET PO SCH (09:22)
[2017-03-22] MEDS: Lisinopril 20 MG TABLET PO SCH (09:22)
[2017-03-22] MEDS: Nicotine 21 MG PATCH.TD24 TD SCH (09:23)
[2017-03-22] MEDS: MOM Conc 10 ML UD.LIQ PO PRN (17:38)
--- NOTE | 2017-03-22 18:52 | Internal Med Progress Note ---
Date of Encounter: 03/24/17 Time of Encounter: 18:52 - Assessment and plan (1) Hypertensive emergency Current Visit: Yes Status: Resolved Assessment and plan: resolved 03/23 increase metoprolol from 50 mg to 100 mg daily 03/25 plan to change metoprolol tartrate to succinate (currently being held for stress test) nuclear cardiac stress test today and tomorrow continuous cardiac monitoring continue home blood pressure meds - metoprolol (increased dose, succinate to tartrate), lisinopril, lasix Norvasc 10 mg added on admission Hydralazine IV PRN (2) Neutrophilic leukocytosis Current Visit: Yes Status: Resolved Assessment and plan: resolved most likely reactive due to steroids blood cultures preliminary no growth (3) Diastolic CHF, acute on chronic Current Visit: Yes Status: Ruled-out Assessment and plan: stable, chronic continue aspirin, statin, ACEI, metoprolol echo: EF 65%, moderate concentric left ventricle hypertrophy, mild left ventricle diastolic dysfunction. (4) HLD (hyperlipidemia) Current Visit: Yes Status: Acute Qualifiers: Hyperlipidemia type: mixed hyperlipidemia Qualified Code(s): E78.2 - Mixed hyperlipidemia - Subjective Interval history: Patient seen and examined. Chart reviewed. Patient is comfortably lying in bed. Patient denies any chest pain, shortness of breath, nausea, vomiting - Constitutional Vitals: Temp Pulse Resp BP Pulse Ox 97.6 F 81 14 154/73 92 03/22/17 16:05 03/22/17 16:05 03/22/17 16:05 03/22/17 18:27 03/22/17 16:05 General appearance: Present: A&O X 3, no acute distress, answers questions appropriately - Head Head exam: Present: atraumatic, normocephalic - Eye Eye exam: Present: PERRL, conjuntiva pink, sclera anicteric Pupils: Present: PERRL - Neck Neck exam general surgery: Present: supple, trachea midline. Absent: lymphadenopathy - Respiratory Respiratory exam: Present: CTAB. Absent: accessory muscle use, rales, rhonchi, wheezes - Cardiovascular Cardiovascular exam: Present: RRR, +S1, +S2. Absent: diastolic murmur, gallop, rubs, systolic murmur - GI/Abdominal GI/Abdominal exam: Present: normal bowel sounds, soft, no peritoneal signs. Absent: distended, tenderness - Extremities Exam Extremities exam: Present: warm, radial pulses palpable and symmetrical. Absent : calf tenderness, cyanotic, pedal edema - Neurological Exam Neurological exam: Present: CN II-XII intact, oriented X3, no focal deficits. Absent: pronater drift, facial droop, speech deficit - Skin Skin exam: Present: dry, intact Internal Medicine: Result - Labs CBC & Chem 7: 03/24/17 04:54 03/24/17 04:54 Labs: Short CBC 03/22/17 Range/Units 05:10 WBC 14.4 H (4.3-11.1) K/mcL Hgb 14.9 (11.5-15.4) g/dL Hct 44.5 (35.3-44.9) % Plt Count 264 (140-400) K/mcL Neutrophils # 9.6 H (1.6-8.9) K/mcL BMP 03/22/17 05:10 Sodium 141 Potassium 3.4 L Chloride 106 Carbon Dioxide 24 BUN 22 H Creatinine 0.68 Glucose 102 H Calcium 8.9 Consult Discharge Plan - Plan Referrals: Kindra Holliday, DENTAL LABORATORY MANAGER [Primary Care Provider] -
[2017-03-23] MEDS: *HR* Enoxaparin 40 MG/0.4 ML SYRINGE SQ SCH (05:17)
[2017-03-23 06:45] LABS: Basophils # 0.1 K/mcL (0.0-0.2); Basophils % 0.6 %; Eosinophils # 0.2 K/mcL (0.0-0.6); Hematocrit 46.8 % (35.3-44.9); Hemoglobin 15.4 g/dL (11.5-15.4); Immature Granulocytes % 0.7 % (0-4); Lymphocytes # 4.5 K/mcL (0.6-4.6); Lymphocytes % 43.2 %; Mean Corpuscular HGB Conc 32.9 g/dL (31.6-35.5); Mean Corpuscular Hemoglobin 30.6 pg (28.0-33.3); Mean Corpuscular Volume 92.9 fL (83.0-100.0); Mean Platelet Volume 9.8 fL (9.4-12.4); Monocytes # 0.9 K/mcL (0.0-1.3); Monocytes % 8.5 %; Neutrophils # 4.7 K/mcL (1.6-8.9); Platelet Count 255 K/mcL (140-400); Red Blood Count 5.04 M/mcL (3.82-4.97); Red Cell Distribution Width 16.2 % (11.5-14.5)
[2017-03-23 06:57] LABS: BUN/Creatinine Ratio 25 (6-26); Blood Urea Nitrogen 16 mg/dL (7-20); Calcium 9.1 mg/dL (8.6-10.8); Carbon Dioxide 28 mEq/L (19-29); Chloride 104 mEq/L (98-109); Glucose 102 mg/dL (70-99); Osmolality,Calculated 289 (280-300); Potassium 3.7 mEq/L (3.5-4.5); Sodium 139 mEq/L (136-145); eGFR For African Americans > 60 (> 60); eGFR For Non-African Americans > 60 (> 60)
[2017-03-23] MEDS ORDERED: Metoprolol 100 MG TABLET PO SCH ×2 (09:00→21:00)
[2017-03-23] MEDS: Furosemide 40 MG TABLET PO SCH (09:18)
[2017-03-23] MEDS: Nicotine 21 MG PATCH.TD24 TD SCH (09:18)
[2017-03-23] MEDS: amLODIPine 5 MG TABLET PO SCH (09:18)
[2017-03-23] MEDS: *HR* LORazepam 0.5 MG TABLET PO SCH ×2 (09:18→21:21)
[2017-03-23] MEDS: tiZANidine 4 MG TABLET PO SCH ×2 (09:18→21:21)
[2017-03-23] MEDS: Lisinopril 20 MG TABLET PO SCH (09:18)
--- NOTE | 2017-03-23 09:36 | Internal Med Progress Note ---
<Denia Razo - Last Filed: 03/23/17 09:33> Date of Encounter: 03/23/17 Time of Encounter: 09:33 - Assessment and plan (1) Hypertensive emergency Current Visit: Yes Status: Resolved Assessment and plan: resolved, still with HTN blood pressures still elevated - using hydralazine ~ once a day increase metoprolol from 50 mg to 100 mg daily nuclear cardiac stress test continuous cardiac monitoring continue home blood pressure meds - metoprolol (increased dose), lisinopril, lasix Norvasc 10 mg added on admission Hydralazine IV PRN (2) Neutrophilic leukocytosis Current Visit: Yes Status: Resolved Assessment and plan: resolved most likely reactive due to steroids blood cultures preliminary no growth (3) COPD with acute exacerbation Current Visit: Yes Status: Ruled-out Assessment and plan: ruled out patient states that this is her normal breathing (4) Diastolic CHF, acute on chronic Current Visit: Yes Status: Ruled-out Assessment and plan: stable, chronic continue aspirin, statin, ACEI, metoprolol echo: EF 65%, moderate concentric left ventricle hypertrophy, mild left ventricle diastolic dysfunction. (5) HLD (hyperlipidemia) Current Visit: Yes Status: Acute Qualifiers: Hyperlipidemia type: mixed hyperlipidemia Qualified Code(s): E78.2 - Mixed hyperlipidemia (6) Tobacco dependence Current Visit: Yes Status: Acute Assessment and plan: nicotine patch (7) Morbid obesity with BMI of 40.0-44.9, adult Current Visit: Yes Status: Acute (8) Chest pain Current Visit: Yes Status: Resolved Assessment and plan: resolved Qualifiers: Chest pain type: unspecified Qualified Code(s): R07.9 - Chest pain, unspecified - Subjective Interval history: Patient states she is feeling dyspneic, but this is happens every morning for her. She is also tired this morning. - Constitutional Vitals: Temp Pulse Resp BP Pulse Ox 97.5 F L 89 15 160/73 92 03/23/17 06:45 03/23/17 06:45 03/23/17 06:45 03/23/17 06:45 03/23/17 06:45 General appearance: Present: A&O X 3, no acute distress, answers questions appropriately - Head Head exam: Present: atraumatic, normocephalic - Eye Eye exam: Present: PERRL, conjuntiva pink, sclera anicteric Pupils: Present: PERRL - Neck Neck exam general surgery: Present: supple, trachea midline - Respiratory Respiratory exam: Present: CTAB. Absent: accessory muscle use, rales, rhonchi, wheezes - Cardiovascular Cardiovascular exam: Present: RRR, +S1, +S2. Absent: diastolic murmur, gallop, rubs, systolic murmur - GI/Abdominal GI/Abdominal exam: Present: normal bowel sounds, soft, no peritoneal signs. Absent: distended, tenderness - Extremities Exam Extremities exam: Present: warm, radial pulses palpable and symmetrical. Absent : calf tenderness, cyanotic, pedal edema - Neurological Exam Neurological exam: Present: CN II-XII intact, oriented X3, no focal deficits. Absent: pronater drift, facial droop, speech deficit - Skin Skin exam: Present: dry, intact, warm Internal Medicine: Result - Labs CBC & Chem 7: 03/23/17 05:46 03/23/17 05:46 Labs: Short CBC 03/23/17 Range/Units 05:46 WBC 10.3 (4.3-11.1) K/mcL Hgb 15.4 (11.5-15.4) g/dL Hct 46.8 H (35.3-44.9) % Plt Count 255 (140-400) K/mcL Neutrophils # 4.7 (1.6-8.9) K/mcL BMP 03/23/17 05:46 Sodium 139 Potassium 3.7 Chloride 104 Carbon Dioxide 28 BUN 16 Creatinine 0.64 Glucose 102 H Calcium 9.1 Consult Discharge Plan - Plan Referrals: Kindra Holliday PUBLIC HEALTH SOCIAL WORKER [Primary Care Provider] - <Mode Montiel - Last Filed: 03/23/17 19:05> Date of Encounter: 03/23/17 - Constitutional Vitals: Temp Pulse Resp BP Pulse Ox 98.2 F 77 19 169/74 93 03/23/17 18:34 03/23/17 18:34 03/23/17 18:34 03/23/17 18:34 03/23/17 16:00 Internal Medicine: Result - Labs CBC & Chem 7: 03/23/17 05:46 03/23/17 05:46 Labs: Short CBC 03/23/17 Range/Units 05:46 WBC 10.3 (4.3-11.1) K/mcL Hgb 15.4 (11.5-15.4) g/dL Hct 46.8 H (35.3-44.9) % Plt Count 255 (140-400) K/mcL Neutrophils # 4.7 (1.6-8.9) K/mcL BMP 03/23/17 05:46 Sodium 139 Potassium 3.7 Chloride 104 Carbon Dioxide 28 BUN 16 Creatinine 0.64 Glucose 102 H Calcium 9.1 - Attending Attestation I examined this patient and my medical decision-making was reviewed with the Resident Physician. I agree with the documented findings, disposition and treatment plan as described except to the extent set forth below.
[2017-03-23] MEDS ORDERED: Regadenoson 0.4 MG/5 ML SYRINGE IVP ONE (11:37)
[2017-03-24 05:10] LABS: Basophils # 0.1 K/mcL (0.0-0.2); Basophils % 0.5 %; Eosinophils # 0.3 K/mcL (0.0-0.6); Eosinophils % 3.6 %; Hematocrit 44.1 % (35.3-44.9); Hemoglobin 14.4 g/dL (11.5-15.4); Immature Granulocytes % 1.1 % (0-4); Lymphocytes # 4.3 K/mcL (0.6-4.6); Mean Corpuscular HGB Conc 32.7 g/dL (31.6-35.5); Mean Corpuscular Hemoglobin 30.5 pg (28.0-33.3); Mean Corpuscular Volume 93.4 fL (83.0-100.0); Mean Platelet Volume 9.6 fL (9.4-12.4); Monocytes # 0.8 K/mcL (0.0-1.3); Monocytes % 8.6 %; Neutrophils # 3.8 K/mcL (1.6-8.9); Platelet Count 244 K/mcL (140-400); Red Blood Count 4.72 M/mcL (3.82-4.97); Red Cell Distribution Width 15.6 % (11.5-14.5); Segmented Neutrophils % 40.2 %
[2017-03-24 05:21] LABS: BUN/Creatinine Ratio 26 (6-26); Blood Urea Nitrogen 18 mg/dL (7-20); Calcium 8.6 mg/dL (8.6-10.8); Carbon Dioxide 28 mEq/L (19-29); Chloride 105 mEq/L (98-109); Glucose 103 mg/dL (70-99); Osmolality,Calculated 292 (280-300); Potassium 3.8 mEq/L (3.5-4.5); Sodium 140 mEq/L (136-145); eGFR For African Americans > 60 (> 60); eGFR For Non-African Americans > 60 (> 60)
[2017-03-24] MEDS: *HR* Enoxaparin 40 MG/0.4 ML SYRINGE SQ SCH (06:08)
[2017-03-24] MEDS ORDERED: Regadenoson 0.4 MG/5 ML SYRINGE IVP ONE (06:52)
--- NOTE | 2017-03-24 08:44 | Internal Med Progress Note ---
<Denia Razo - Last Filed: 03/24/17 10:02> Date of Encounter: 03/24/17 Time of Encounter: 08:42 - Assessment and plan (1) Hypertensive emergency Current Visit: Yes Status: Resolved Assessment and plan: resolved 03/23 increase metoprolol from 50 mg to 100 mg daily 03/25 plan to change metoprolol tartrate to succinate (currently being held for stress test) nuclear cardiac stress test today and tomorrow continuous cardiac monitoring continue home blood pressure meds - metoprolol (increased dose, succinate to tartrate), lisinopril, lasix Norvasc 10 mg added on admission Hydralazine IV PRN (2) Neutrophilic leukocytosis Current Visit: Yes Status: Resolved Assessment and plan: resolved most likely reactive due to steroids blood cultures preliminary no growth (3) COPD with acute exacerbation Current Visit: Yes Status: Ruled-out Assessment and plan: ruled out patient states that this is her normal breathing (4) Diastolic CHF, acute on chronic Current Visit: Yes Status: Ruled-out Assessment and plan: stable, chronic continue aspirin, statin, ACEI, metoprolol echo: EF 65%, moderate concentric left ventricle hypertrophy, mild left ventricle diastolic dysfunction. (5) HLD (hyperlipidemia) Current Visit: Yes Status: Acute Qualifiers: Hyperlipidemia type: mixed hyperlipidemia Qualified Code(s): E78.2 - Mixed hyperlipidemia (6) Tobacco dependence Current Visit: Yes Status: Acute Assessment and plan: nicotine patch (7) Morbid obesity with BMI of 40.0-44.9, adult Current Visit: Yes Status: Acute (8) Chest pain Current Visit: Yes Status: Resolved Assessment and plan: resolved Qualifiers: Chest pain type: unspecified Qualified Code(s): R07.9 - Chest pain, unspecified - Constitutional Vitals: Temp Pulse Resp BP Pulse Ox 98 F 90 16 165/100 94 03/24/17 08:10 03/24/17 08:10 03/24/17 08:10 03/24/17 08:10 03/24/17 08:10 General appearance: Present: A&O X 3, no acute distress, answers questions appropriately Internal Medicine: Result - Labs CBC & Chem 7: 03/24/17 04:54 03/24/17 04:54 Labs: Short CBC 03/24/17 Range/Units 04:54 WBC 9.4 (4.3-11.1) K/mcL Hgb 14.4 (11.5-15.4) g/dL Hct 44.1 (35.3-44.9) % Plt Count 244 (140-400) K/mcL Neutrophils # 3.8 (1.6-8.9) K/mcL [facility] [place] 03/24/17 04:54 Sodium 140 Potassium 3.8 Chloride 105 Carbon Dioxide 28 BUN 18 Creatinine 0.70 Glucose 103 H Calcium 8.6 Consult Discharge Plan - Plan Referrals: Kindra Holliday, STOCK UNLOADER [Primary Care Provider] - <Mode Montiel - Last Filed: 03/24/17 18:01> Date of Encounter: 03/24/17 - Constitutional Vitals: Temp Pulse Resp BP Pulse Ox 97.8 F 82 16 182/88 95 03/24/17 16:10 03/24/17 16:10 03/24/17 16:10 03/24/17 16:10 03/24/17 16:10 Internal Medicine: Result - Labs CBC & Chem 7: 03/24/17 04:54 03/24/17 04:54 Labs: Short CBC 03/24/17 Range/Units 04:54 WBC 9.4 (4.3-11.1) K/mcL Hgb 14.4 (11.5-15.4) g/dL Hct 44.1 (35.3-44.9) % Plt Count 244 (140-400) K/mcL Neutrophils # 3.8 (1.6-8.9) K/mcL [facility] [place] 03/24/17 04:54 Sodium 140 Potassium 3.8 Chloride 105 Carbon Dioxide 28 BUN 18 Creatinine 0.70 Glucose 103 H Calcium 8.6 - Attending Attestation I examined this patient and my medical decision-making was reviewed with the Resident Physician. I agree with the documented findings, disposition and treatment plan as described except to the extent set forth below.
[2017-03-24] MEDS: tiZANidine 4 MG TABLET PO SCH ×2 (09:58→21:05)
[2017-03-24] MEDS: Lisinopril 20 MG TABLET PO SCH (09:58)
[2017-03-24] MEDS: Aspirin 81 MG TAB.CHEW PO SCH (09:58)
[2017-03-24] MEDS: amLODIPine 5 MG TABLET PO SCH (09:59)
[2017-03-24] MEDS: *HR* LORazepam 0.5 MG TABLET PO SCH ×2 (09:59→21:05)
[2017-03-24] MEDS: Furosemide 40 MG TABLET PO SCH (09:59)
[2017-03-24] MEDS: Metoprolol XL (24 HR) Succ 50 MG TAB.ER.24H PO SCH (10:00)
[2017-03-24] MEDS: MOM Conc 10 ML UD.LIQ PO PRN (10:05)
[2017-03-24] MEDS ORDERED: Budesonide/Formoterol 80/4.5 MDI IH SCH (11:15)
[2017-03-24] MEDS ORDERED: Metoprolol 100 MG TABLET PO SCH (21:00)
[2017-03-25] MEDS: *HR* Enoxaparin 40 MG/0.4 ML SYRINGE SQ SCH (05:25)
--- NOTE | 2017-03-25 07:38 | Internal Med Progress Note ---
<Denia Razo - Last Filed: 03/25/17 07:43> Date of Encounter: 03/25/17 Time of Encounter: 07:38 - Assessment and plan (1) Hypertensive emergency Current Visit: Yes Status: Resolved Assessment and plan: resolved 03/23 increase metoprolol from 50 mg to 100 mg daily 03/25 change metoprolol tartrate to succinate nuclear cardiac stress test day 2 today continuous cardiac monitoring continue home blood pressure meds - metoprolol (increased dose, succinate to tartrate), lisinopril, lasix Norvasc 10 mg added on admission Hydralazine IV PRN (2) Neutrophilic leukocytosis Current Visit: Yes Status: Resolved Assessment and plan: resolved most likely reactive due to steroids blood cultures preliminary no growth (3) COPD with acute exacerbation Current Visit: Yes Status: Ruled-out Assessment and plan: ruled out patient states that this is her normal breathing (4) Diastolic CHF, acute on chronic Current Visit: Yes Status: Ruled-out Assessment and plan: stable, chronic continue aspirin, statin, ACEI, metoprolol echo: EF 65%, moderate concentric left ventricle hypertrophy, mild left ventricle diastolic dysfunction. (5) HLD (hyperlipidemia) Current Visit: Yes Status: Acute Qualifiers: Hyperlipidemia type: mixed hyperlipidemia Qualified Code(s): E78.2 - Mixed hyperlipidemia (6) Tobacco dependence Current Visit: Yes Status: Acute Assessment and plan: nicotine patch (7) Morbid obesity with BMI of 40.0-44.9, adult Current Visit: Yes Status: Acute (8) Chest pain Current Visit: Yes Status: Resolved Assessment and plan: resolved Qualifiers: Chest pain type: unspecified Qualified Code(s): R07.9 - Chest pain, unspecified - Subjective Interval history: Patient resting comfortably waiting to go to stress test. - Constitutional Vitals: Temp Pulse Resp BP Pulse Ox 97.9 F 88 20 142/83 96 03/25/17 05:26 03/25/17 05:26 03/25/17 05:26 03/25/17 05:26 03/25/17 05:26 General appearance: Present: A&O X 3, no acute distress, answers questions appropriately - Head Head exam: Present: atraumatic, normocephalic - Eye Eye exam: Present: PERRL, conjuntiva pink, sclera anicteric Pupils: Present: PERRL - Neck Neck exam general surgery: Present: supple, trachea midline - Respiratory Respiratory exam: Present: CTAB. Absent: accessory muscle use, rales, rhonchi, wheezes - Cardiovascular Cardiovascular exam: Present: RRR, +S1, +S2. Absent: diastolic murmur, gallop, rubs, systolic murmur - GI/Abdominal GI/Abdominal exam: Present: normal bowel sounds, soft, no peritoneal signs. Absent: distended, tenderness - Extremities Exam Extremities exam: Present: warm. Absent: calf tenderness, cyanotic, pedal edema - Neurological Exam Neurological exam: Present: alert, CN II-XII intact, oriented X3, facial droop, speech deficit - Skin Skin exam: Present: dry, intact, normal color, warm Internal Medicine: Result - Labs CBC & Chem 7: 03/24/17 04:54 03/24/17 04:54 Consult Discharge Plan - Plan Referrals: Kindra Holliday CNP [Primary Care Provider] - <oMde Montiel P - Last Filed: 03/25/17 13:58> Date of Encounter: 03/25/17 - Assessment and plan (1) Hypertensive emergency Current Visit: Yes Status: Resolved (2) Neutrophilic leukocytosis Current Visit: Yes Status: Resolved (3) Diastolic CHF, acute on chronic Current Visit: Yes Status: Ruled-out (4) HLD (hyperlipidemia) Current Visit: Yes Status: Acute Qualifiers: Hyperlipidemia type: mixed hyperlipidemia Qualified Code(s): E78.2 - Mixed hyperlipidemia - Constitutional Vitals: Temp Pulse Resp BP Pulse Ox 98 F 83 16 157/85 96 03/25/17 07:53 03/25/17 07:53 03/25/17 07:53 03/25/17 07:53 03/25/17 07:53 Internal Medicine: Result - Labs CBC & Chem 7: 03/24/17 04:54 03/24/17 04:54 - Attending Attestation I examined this patient and my medical decision-making was reviewed with the Resident Physician. I agree with the documented findings, disposition and treatment plan as described except to the extent set forth below. Awaiting for stress test result.
[2017-03-25] MEDS: (ADVAIR 250/50) IH SCH (08:20)
[2017-03-25] MEDS ORDERED: Metoprolol XL (24 HR) Succ 50 MG TAB.ER.24H PO SCH (09:00)
[2017-03-25] MEDS: Aspirin 81 MG TAB.CHEW PO SCH (10:47)
[2017-03-25] MEDS: Lisinopril 20 MG TABLET PO SCH (10:47)
[2017-03-25] MEDS: Metoprolol XL (24 HR) Succ 50 MG TAB.ER.24H PO SCH (10:49)
[2017-03-25] MEDS: Furosemide 40 MG TABLET PO SCH (10:49)
[2017-03-25] MEDS: *HR* LORazepam 0.5 MG TABLET PO SCH ×2 (10:49→20:56)
[2017-03-25] MEDS: Nicotine 21 MG PATCH.TD24 TD SCH (10:50)
[2017-03-25] MEDS: amLODIPine 5 MG TABLET PO SCH (10:50)
[2017-03-25] MEDS: tiZANidine 4 MG TABLET PO SCH ×2 (10:51→20:56)
[2017-03-26] MEDS: *HR* Enoxaparin 40 MG/0.4 ML SYRINGE SQ SCH (06:28)
--- NOTE | 2017-03-26 09:07 | Internal Med Progress Note ---
<Denia Razo - Last Filed: 03/26/17 09:07> Date of Encounter: 03/26/17 Time of Encounter: 09:07 - Assessment and plan (1) Hypertensive emergency Current Visit: Yes Status: Resolved Assessment and plan: resolved 03/23 increase metoprolol from 50 mg to 100 mg daily 03/25 change metoprolol tartrate to succinate stress test showed TID, LHC planned for today continuous cardiac monitoring continue home blood pressure meds - lisinopril, lasix --metoprolol (increased dose, succinate to tartrate) Norvasc 10 mg added on admission Hydralazine IV PRN (2) Neutrophilic leukocytosis Current Visit: Yes Status: Resolved Assessment and plan: resolved most likely reactive due to steroids blood cultures preliminary no growth (3) COPD with acute exacerbation Current Visit: Yes Status: Ruled-out Assessment and plan: ruled out patient states that this is her normal breathing (4) Diastolic CHF, acute on chronic Current Visit: Yes Status: Ruled-out Assessment and plan: stable, chronic continue aspirin, statin, ACEI, metoprolol echo: EF 65%, moderate concentric left ventricle hypertrophy, mild left ventricle diastolic dysfunction. (5) HLD (hyperlipidemia) Current Visit: Yes Status: Acute Qualifiers: Hyperlipidemia type: mixed hyperlipidemia Qualified Code(s): E78.2 - Mixed hyperlipidemia (6) Tobacco dependence Current Visit: Yes Status: Acute Assessment and plan: nicotine patch (7) Morbid obesity with BMI of 40.0-44.9, adult Current Visit: Yes Status: Acute (8) Chest pain Current Visit: Yes Status: Resolved Assessment and plan: resolved Qualifiers: Chest pain type: unspecified Qualified Code(s): R07.9 - Chest pain, unspecified - Subjective Interval history: Patient states that she has pain in her right leg this morning. - Constitutional Vitals: Temp Pulse Resp BP Pulse Ox 98.4 F 70 18 144/83 97 03/26/17 07:00 03/26/17 07:00 03/26/17 07:00 03/26/17 07:00 03/26/17 07:00 General appearance: Present: A&O X 3, no acute distress, answers questions appropriately - Head Head exam: Present: atraumatic, normocephalic - Eye Eye exam: Present: PERRL, conjuntiva pink, sclera anicteric Pupils: Present: PERRL - Neck Neck exam general surgery: Present: supple, trachea midline - Respiratory Respiratory exam: Present: decreased breath sounds. Absent: respiratory distress, wheezes, tachypnea - Cardiovascular Cardiovascular exam: Present: RRR, +S1, +S2. Absent: diastolic murmur, gallop, rubs, systolic murmur - GI/Abdominal GI/Abdominal exam: Present: normal bowel sounds, tenderness (diffuse, mild) Additional comments: bruising on right side of abdomen - near midline, below umbilicus - not due to heparin shots, associated with tenderness - Extremities Exam Extremities exam: Present: normal capillary refill, pedal edema (1+ right leg), tenderness (mild, right leg), warm - Neurological Exam Neurological exam: Present: alert, CN II-XII intact, normal gait, oriented X3, no focal deficits. Absent: pronater drift, facial droop, speech deficit - Skin Skin exam: Present: dry, intact, warm Additional comments: bruising of abdomen not associated with heparin shots with associated abdominal tenderness Internal Medicine: Result - Labs CBC & Chem 7: 03/24/17 04:54 03/24/17 04:54 Consult Discharge Plan - Plan Referrals: Kindra Holliday CNP [Primary Care Provider] - <Mode Montiel - Last Filed: 03/26/17 20:52> Date of Encounter: 03/26/17 - Assessment and plan (1) Hypertensive emergency Current Visit: Yes Status: Resolved (2) Neutrophilic leukocytosis Current Visit: Yes Status: Resolved (3) Diastolic CHF, acute on chronic Current Visit: Yes Status: Ruled-out (4) HLD (hyperlipidemia) Current Visit: Yes Status: Acute Qualifiers: Hyperlipidemia type: mixed hyperlipidemia Qualified Code(s): E78.2 - Mixed hyperlipidemia - Constitutional Vitals: Temp Pulse Resp BP Pulse Ox 97.7 F 82 18 148/92 95 03/26/17 14:59 03/26/17 15:22 03/26/17 15:22 03/26/17 15:22 03/26/17 20:42 Internal Medicine: Result - Labs CBC & Chem 7: 03/24/17 04:54 03/24/17 04:54 - Attending Attestation I examined this patient and my medical decision-making was reviewed with the Resident Physician. I agree with the documented findings, disposition and treatment plan as described except to the extent set forth below. Please follow the recommendations from cardiology
--- NOTE | 2017-03-26 09:48 | Cardiology Consult Note ---
Date of Encounter: 03/26/17 Time of Encounter: 09:41 Assessment and Plan (1) Abnormal stress test Current Visit: Yes Status: Acute Stress test abnormal showing evidence of TID. Stress-Perfusion imaging was negative for ischemia or infarct. Pharmacologic ECG was non diagnostic for ischemia. Patient had no chest pain with stress. Gated EF = 63%. The LV is not dilated, small ventricle There is evidence of TID (ratio 1.47), a finding that can be associated with balanced ischemia and severe multivessel coronary artery disease Cardiac risk factors include HTN, HLD, tobacco use, and significant family history (father SD at age 52 and brother with cardiac stents in his 50's.) Describes symptoms concerning for angina. Discussed LHC verses medical management. She agrees to proceed with LHC. R/B/A discussed and she voiced understanding. (2) Hypertensive emergency Current Visit: Yes Status: Resolved Blood pressure improved. Add oral hydralizine if needed. Discussion w patient/family: The assessment and plan as outlined above was discussed with the patient and/or family members who expressed understanding and agreement. All questions were answered. Thank you for involving us in the care of your patient. Please call with any questions. History of Present Illness Consult date: 03/26/17 Requesting physician: Mode Montiel Consult reason: Abnormal stress Chief complaint: Elevated blood pressure History of present illness: Ms. Moses is a 62 year old female with a history of HTN, HLD, COPD, ascending aortic aneurysm (4.0), and tobacco use who presented with hypertensive urgency. Cardiology consulted for abnormal stress test. States blood pressure was up to 210/100 at home despite taking antihypertensives. She reports feeling fatigue and headache. She denies chest pain or SOB. She did admit to chest pain one month ago at home while she was lying in bed. She reports passing out. When she woke up she felt better and decided not to seek medical attention. She is only able to do minimal activity at home due to fatigue. Occasional chest heaviness with exertion. Denies history of CAD or previous work-up. Past Med Surg Social Fam HX - Past Medical History Attestation: Yes The following information was validated with the patient. Medical history: aortic aneurysm, asthma, COPD, GERD, hyperlipidemia, hypertension Psychiatric history: anxiety - Past Surgical History Surgical History: orthopedic, other - Social History Smoking Status: Current every day smoker Smokeless Tobacco Status: No Alcohol use: occasionally Drug use: none Medications and Allergies Fluticasone/Salmeterol [Advair 250-50 Diskus] 1 each IH BID 04/09/15 [History] Ibuprofen [Motrin] 800 mg PO Q8HR 04/09/15 [History] LORazepam [Ativan] 0.5 mg PO BID PRN 04/09/15 [History] Montelukast [Singulair] 10 mg PO QPM 04/09/15 [History] Albuterol Sulfate [Proair Hfa] 2 puff IH Q4H PRN 03/19/17 [History] Aspirin Enteric Coated [Aspirin EC] 81 mg PO DAILY 03/19/17 [History] Furosemide [Lasix] 40 mg PO DAILY 03/19/17 [History] Lisinopril [Zestril] 40 mg PO DAILY 03/19/17 [History] Metoprolol Succinate 100 mg PO QPM 03/19/17 [History] Tizanidine HCl 4 mg PO BID PRN 03/19/17 [History] 3 Allergy/AdvReac Type Severity Reaction Status Date / Time budesonide [From Symbicort] Allergy Hives Verified 03/24/17 11:18 codeine Allergy Hives Verified 07/18/15 01:53 Formoterol [From Symbicort] Allergy Hives Verified 03/24/17 11:18 Penicillins [PCN] Allergy Hives Verified 04/09/15 01:16 All Systems Review: A 10-system review of systems was performed and is negative for pertinent findings except as documented above in the HPI. Physical Examination Vital Signs, Last 4 Hours Temp Pulse Resp BP Pulse Ox 03/26/17 07:00 98.4 F 70 18 144/83 97 General: Conversant, No Apparent Distress, Other (Obese female) HEENT: Atraumatic, Normocephaly, Mucus Membranes Moist Neck: No JVD, Normal carotid pulses Cardiac: Reg Rate and Rhythm, Normal S1 and S2, No Murmur Lungs: Normal Breath Sounds, No Wheeze, Rales, Rhonchi Neuro: Alert and responsive, No focal deficits noted Abdomen: Soft, Non-Tender Skin: No rashes noted on visualized skin Musculoskeletal: No Chest Wall Tenderness Extremities: No Clubbing, No Cyanosis, No Edema, Normal Pulses Results 03/24/17 04:54 03/24/17 04:54 Chest X-Ray 03/19/17 16:42 IMPRESSION: No acute cardiopulmonary process. D/ : / 03/19/2017 17:53:34 Crystal Pena MD / Tyra Skinner Interpreting Provider: Crystal Pena MD Echocardiogram 03/20/17 21:11 Impressions: LVEF 65%. Moderate concentric left ventricular hypertrophy. Mild left ventricular diastolic dysfunction. No significant valvular dysfunction. Left Ventricular Wall Motion: Rest Echo Findings All wall segments showed normal motion. Findings: Study Quality * Technically adequate exam. ECG Findings * Normal sinus rhythm. Left Ventricle * LVEF 65%. * Moderate concentric left ventricular hypertrophy. * Mild left ventricular diastolic dysfunction. Right Ventricle * Normal right ventricular structure and function. Right Atrium * Normal right atrial size. Interatrial Septum * No evidence of PFO by color Doppler. Aortic Valve * No aortic regurgitation. * No aortic stenosis. * Normal aortic valve function. * Aortic valve not well visualized. Mitral Valve * Normal mitral valve structure and function. Tricuspid Valve * Trace tricuspid regurgitation. * Estimated RA pressure is 5 mmHg. Pulmonic Valve * Pulmonic valve not well visualized. Aorta * Normally sized aortic root. IVC * Normal IVC dimensions and inspiratory collapse. Pericardium * The pericardium appears normal. - Imaging and Cardiology Echo: report reviewed Cardiac cath: report reviewed - EKG Interpretation EKG results cardiology: personally reviewed Consult Discharge Plan - Plan Referrals: Kindra Holliday GEAR TOOTH LAPPING MACHINE OPERATOR [Primary Care Provider] -
[2017-03-26] MEDS: Lisinopril 20 MG TABLET PO SCH (10:12)
[2017-03-26] MEDS: Metoprolol XL (24 HR) Succ 50 MG TAB.ER.24H PO SCH (10:13)
[2017-03-26] MEDS: tiZANidine 4 MG TABLET PO SCH ×2 (10:14→20:29)
[2017-03-26] MEDS: Aspirin 81 MG TAB.CHEW PO SCH (10:15)
[2017-03-26] MEDS: amLODIPine 5 MG TABLET PO SCH (10:15)
[2017-03-26] MEDS: Nicotine 21 MG PATCH.TD24 TD SCH (10:15)
[2017-03-26] MEDS: *HR* LORazepam 0.5 MG TABLET PO SCH ×2 (10:16→20:30)
[2017-03-26] MEDS: Furosemide 40 MG TABLET PO SCH (10:17)
[2017-03-26] MEDS: (ADVAIR 250/50) IH SCH (10:25)
[2017-03-26] MEDS ORDERED: *HR* Heparin 10,000 UNIT/10 ML VIAL ONE (13:05)
[2017-03-26] MEDS ORDERED: 0.9 % Sodium Chloride 1,000 ML ONE ×2 (13:05→13:27)
[2017-03-26] MEDS ORDERED: Nitroglycerin 1,000 MCG/10 ML VIAL IV ONE (13:05)
[2017-03-26] MEDS ORDERED: Heparin 1,000 UNITS/500 mL NS 500 ML ONE (13:05)
--- NOTE | 2017-03-26 13:28 | Pre-Sedation Evaluation ---
Pre-sedation evaluation - Pre-sedation checklist Date of procedure: 03/26/17 Procedure: [facility] Recent Vitals: Last Vital Signs Temp 98.4 F 03/26/17 12:04 Pulse 68 03/26/17 12:04 Resp 16 03/26/17 12:04 BP 144/83 03/26/17 07:00 Pulse Ox 94 03/26/17 12:04 Dietary Status: NPO after Midnight Airway Assessment: Patient can open mouth completely, TMJ function normal Possible difficult airway: No ASA Classification *see protocol: CLASS II-Mild systemic disease Plan of Care: Pt appropriate candidate for procedure/moderate/conscious sedation , Risks/benefits of procedure/sedation discussed w/ patient/family
[2017-03-26] MEDS ORDERED: *HR* Midazolam HCl 2 MG/2 ML VIAL ONE (13:36)
[2017-03-26] MEDS ORDERED: *HR* FentaNYL (PF) 100 MCG/2 ML VIAL ONE (13:36)
--- NOTE | 2017-03-26 14:11 | Invasive Diagnostic Lab Proc ---
Name: Sylvie Moses Date of Study: 03/26/2017 Date: 1955 Ht: 63.0in Medical Record#: [id number] Age: 62 Wt: 238.10lb Gender: Female BSA: 2.08 Order #: [id number] BMI: 42.19 Physicians Procedure Physician: Rosemarie Cordero MD Referring MD: Sandra Denis MD Referring MD: Staff Name Position Time In Selene Lindsey RN Monitor 01:23 PM Tawanna Carlos RN Monitor 01:23 PM Marci Novak RN Branch Officer 01:23 PM You Stock RT (R) Scrub 01:24 PM Indications Indication Abnormal Test - Stress Procedures Performed Procedure CORONARY ARTERY ANGIO S&I Pre-Procedure Checklist Informed consent is complete signed and on chart. H&P is on chart. ID band is on and ID verified with patient. Patient NPO for procedure The procedure was described for the patient and questions were answered. Blood Pressure: 144/83 ECG is on chart. Plan of Care Patient will tolerate the procedure without complications. Adequate level of comfort will be maintained. Hemodynamics will remain stable Patient will recover from procedure without complications. Respiratory function will be maintained. Cardiac rhythm will remain stable. Patient temperature will be maintained. Patient and/or family have verbalized understanding of the procedure. Patient Education Chief Complaint/Reason for Test: Cardiac Cath Developmental Category: Adult (18-64 years) Developmentally Appropriate for Age: Yes Learning Barriers: None Education Needs: Procedure Education Method: Verbal Information Taught: Cardiac Cath Educational Evaluation: Able to repeat information Intravenous Access Time IV Size Location DC'd Fluid/Drip Rate Units RN 01:03 PM 22g 1" Patent On Arrival Rt Hand Marci Novak RN Allergies budesonide Formoterol Penicillins codeine Vital Signs Time BP (mmHg) HR (bpm) O2 Sat. RR (bpm) LOC 01:03 PM 144 / 83 70 97 % 18 5 = Fully awake and oriented or at pre-proc level 01:31 PM / % 5 = Fully awake and oriented or at pre-proc level 01:31 PM / % 5 = Fully awake and oriented or at pre-proc level 01:32 PM 135 / 74 72 97 % 18 01:36 PM 120 / 70 70 97 % 20 01:41 PM 127 / 72 70 95 % 20 01:46 PM 116 / 68 72 94 % 01:52 PM 152 / 79 74 95 % 01:56 PM 154 / 93 81 96 % 01:46 PM / % 4 = Oriented but drowsy Procedural Medications Time Medication Dose Units Method Given By 01:31 PM Oxygen 2 L/min nasal cannula Marci Novak RN 01:37 PM Versed 1 mg Intravenous Marci Novak RN 01:37 PM Fentanyl 50 mcg Intravenous Marci Novak RN 01:47 PM Lidocaine 2% 10 ml Subcutaneous Rosemarie Cordero MD ASA Classification: CLASS II- Mild systemic disease (i.e. well-controlled diabetes, hypertension, asthma, cigarette smoking) May Score Preprocedure Postprocedure Activity 2- Moves 4 extremities sustained head lift Activity 2- Moves 4 extremities sustained head lift Circulation 2- SBP +/= 20 points of pre-anesthetic level Circulation 2- SBP +/= 20 points of pre-anesthetic level Consciousness 2- Awake and alert oriented x 3 Consciousness 2- Awake and alert oriented x 3 O2 Saturation 2- Able to maintain O2 satruation of 92% on room air O2 Saturation 2- Able to maintain O2 satruation of 92% on room air Respiratory 2- Able to deep breathe and cough well Respiratory 2- Able to deep breathe and cough well Total Score 10 Total Score 10 Contrast Agent: Isovue Diagnostic Contrast: 46 ml Total Contrast: 46 ml Fluoro Dose: 261 mGy Procedure Log Time Note Enter By 01:23 PM Pt arrived to pathology laboratory director 2 at 13:23 [facility] 01:23 PM Selene Lindsey RN Position: Monitor [facility]: 13:23 [facility] Tawanna Carlos RN Position: Monitor Time in: 13:23 [facility] :23 PM Marci Novak RN Position: Branch Officer [facility]: 13:23 [facility] You Stock RT (R) Position: Scrub [facility] in: 13:24 [facility] Patient charges- Angio tray pack, Navilyst 3mm J, Pulse Oximetry and ACIST tubing and transducer [facility] :24 PM Case Delayed No [facility] :24 PM Hair removed from procedure site in procedure lab using clippers. Bilateral groin prepped with Chloraprep by Tawanna Carlos RN, safety strap applied then patient was draped. Skin intact. [facility] Physican paged/called 13:24. [facility] :24 PM Physican responded and notified patient is ready 13:24 [facility] :24 PM Physician arrived 13:24 [facility] : PM Meet and greet completed [facility] : PM Sign in performed according to hospital policy. [facility] : PM Procedure start 13: [facility] : PM Case Start : PM CathStat : PM Vitals capture started with the following parameters, Patient=Adult, Interval=5 min, Initial Ibnnyslq=031 mmHg, Deflation Rate=5 mmHg, Cuff placed on Left Arm : PM Time: 13:31 Oxygen on at 2 L/min per nasal cannula by Marci Novak RN : PM Time: 13:31 Patient comfortable and pain free: Yes edil :31 PM Time: 13:31LOC: 5 = Fully awake and oriented or at pre-proc level tsnorm 01:32 PM HR=72 bpm, QUJJ=283/74 mmhg, SpO2=97 %, Resp=18 B/min, Comment=SR 01:33 PM Clinical Presentation: No symptoms, no angina tsoumarlene 01:36 PM HR=70 bpm, UAQZ=462/70 mmhg, SpO2=97.0 %, Resp=20 B/min, Comment=SR 01:37 PM Time: 13:37 Versed 1 mg Intravenous Given by Marci Novak RN 01:37 PM Time: 13:37 Fentanyl 50 mcg Intravenous Given by Marci Novak RN 01:38 PM Pressure channel 3 zeroed. 01:41 PM HR=70 bpm, TCJW=640/72 mmhg, SpO2=95.0 %, Resp=20 B/min, Comment=SR 01:42 PM ASA Class CLASS II- Mild systemic disease (i.e. well-controlled diabetes, hypertension, asthma, cigarette smoking) tsoumarlene :46 PM Time: 13:31LOC: 5 = Fully awake and oriented or at pre-proc level tsoumarlene :46 PM Time: 13:31 Patient comfortable and pain free: Yes edil :46 PM HR=72 bpm, GHXR=191/68 mmhg, SpO2=94.0 %, Comment=SR 01:47 PM Time out performed according to hospital policy 01:47 PM Time: 13:47 10 ml Lidocaine 2% to right groin Subcutaneous Given by Rosemarie Cordero MD 01:48 PM Micro-Introducer Kit utilized for sheath placement 01:48 PM Access obtained by percutaneous puncture. 6Fr 10cm Terumo [place] sheath placed in right Femoral artery. [id number] mm 01:49 PM 0.035 145cm Navilyst 3mmJ wire [id number] 01:49 PM 5Fr FR 4 catheter inserted over the wire [facility] 01:50 PM RCA angiography performed in multiple views. 01:51 PM Catheter removed 01:52 PM 5Fr FL 4 catheter inserted over the wire [facility] 01:52 PM LCA angiography performed in multiple views. mm 01:52 PM Recorded Pressure: Ao, HR=75, Condition=Condition 1 (Aorta) Ao 166/83/117 01:52 PM HR=74 bpm, PMBU=601/79 mmhg, SpO2=95 % 01:53 PM Recorded Pressure: Ao, HR=75, Condition=Condition 1 (Aorta) Ao 155/88/117 01:55 PM Bolus angiogram of right Femoral complete: 2 ml/sec for a total of 4 mls 01:55 PM [facility] PM Sign out completed: Radiation Dose 260.56 mGy Fluoro Time: 1.0 Isovue 370 - 200ml contrast 46 ml given by Rosemarie Cordero MD. Complications: NoneCardiac Rehab Consult needed: NoConfirmed administered medications: Yes mm 01:56 PM Isovue 370 - 200ml,1 Bottle(s) used. 01:56 PM Arterial sheath pulled, Angio-seal closure device used and was Successful [id number] S/N. mm 01:56 PM Post ECG NSR 01:56 PM HR=81 bpm, EINI=690/93 mmhg, SpO2=96.0 %, Comment=SR 01:56 PM Post Blood [facility] 154/93 [facility] 01[facility]57 PM 13:57 Post Pulses Bilateral DP 2+ [email or web address] 01:57 PM 13:57 Post Pulses Bilateral PT 1+ oumm 01:57 PM Information taught Cardiac Cath 01:57 PM Education needs Procedure, Plan of Care, and Responsibilities of Patient in Care 01:57 PM Learning barriers :None 01:57 PM Education Methods Verbal 01:57 PM Education evaluation Able to repeat information :57 PM Site status No bleeding/hematoma - Rt Groin as reported by You Stock RT (R) at 13:57 01:58 PM Plavix, Effient or Brilinta given No 01:58 PM Delay to floor No mm 01:58 PM Complications: None :58 PM Fluoro Time: 1 :58 PM Isovue 370 - 200ml contrast 46 ml given by Rosemarie Cordero MD. :58 PM Radiation Dose 260.56 mGy :58 PM Coronary Dominance: right 01:59 PM Report given to Jyoti ZELAYA Pt taken to E Room #34. 13:59 mm 01:59 PM Pt has no family at this time. mm 02:00 PM Lesion found in Proximal RCA. Pre Stenosis: 100 Pre JEREMI Flow: oumm 02:00 PM Lesion found in Mid LAD. Pre Stenosis: 40 Pre JEREMI Flow: oumm 02:00 PM Right Coronary, Right Posterior Descending Arteries with Right Posterolateral and Acute Marginal branches with 100 % stenosis. oumm 02:00 PM Mid/Distal Left Anterior Descending Coronary Artery and diagonal branches with 40% stenosis. oumm 02:01 PM Patient out of room: 14:01 oumm 02:01 PM Time: 13:46 Patient comfortable and pain free: Yes 02:01 PM Time: 13:46LOC: 4 = Oriented but drowsy [facility] Complications Complication None Hemodynamics Pressures Site Systolic/A Wave Diastolic/V Wave Mean AO 166 83 117 AO 155 88 117 Post Procedure Information Blood Pressure: 154/93 mmHg Rhythm: NSR Post procedural instructions were given Closure Device Time Device Success/Fail 03/26/2017 2:01:00 PM Angio-seal Evolution Successful Site Checks Time Location Status Staff Sheath In? Note 01:57 PM Rt Groin No bleeding/hematoma You Stock RT (R) Pulses Time Site Pre-Procedure Post-Procedure Note 03/26/2017 1:18:00 PM Bilateral DP 2+ 03/26/2017 1:18:00 PM Bilateral PT 1+ 1:57:00 PM Bilateral DP 2+ 1:57:00 PM Bilateral PT 1+ Updated by Selene Lindsey RN on 03/26/2017 2:06:30 PM electronically signed on 03/26/2017 2:07:16 PM with status of Final
--- NOTE | 2017-03-26 14:27 | Event Note ---
Date of Encounter: 03/26/17 Time of Encounter: 14:24 - Cardiology Event Note LHC completed for abnormal stress. LHC demonstrated 100% occlusion of the RCA. There was collateral vessels from left to right. Non-obstructive CAD otherwise. Medical management recommended. Add imdur. Continue asa, statin, and bb. Out- patient f/u will be scheduled. Call with questions.
[2017-03-26] MEDS: *HR* HYDROcodone/Acet 5/325 mg TABLET PO PRN ×2 (15:19→20:30)
[2017-03-26] MEDS: Isosorbide MONOnitrate (24 HR) 30 MG TAB.ER.24H PO SCH (15:39)
[2017-03-26] MEDS ORDERED: Nitroglycerin 0.4 MG TAB.SUBL SL ONE (22:41)
[2017-03-26] MEDS: Nitroglycerin 0.4 MG TAB.SUBL SL PRN ×2 (22:42→22:47)
[2017-03-27] MEDS: *HR* Enoxaparin 40 MG/0.4 ML SYRINGE SQ SCH (06:12)
[2017-03-27 07:51] VITALS: BP 160/85
[2017-03-27] MEDS: (ADVAIR 250/50) IH SCH (08:07)
--- NOTE | 2017-03-27 09:20 | Discharge Summary ---
<Denia Razo - Last Filed: 03/27/17 09:18> Date of Encounter: 03/27/17 Time of Encounter: 09:18 - Discharge Diagnosis (1) Hypertensive emergency Priority: Primary Status: Resolved (2) Neutrophilic leukocytosis Priority: Secondary Status: Resolved (3) COPD with acute exacerbation Priority: Secondary Status: Ruled-out (4) Diastolic CHF, acute on chronic Priority: Secondary Status: Ruled-out (5) HLD (hyperlipidemia) Priority: Secondary Status: Acute Qualifiers: Hyperlipidemia type: mixed hyperlipidemia Qualified Code(s): E78.2 - Mixed hyperlipidemia (6) Tobacco dependence Priority: Secondary Status: Acute (7) Morbid obesity with BMI of 40.0-44.9, adult Priority: Secondary Status: Acute (8) Chest pain Priority: Secondary Status: Resolved Qualifiers: Chest pain type: unspecified Qualified Code(s): R07.9 - Chest pain, unspecified (9) Thoracic aortic aneurysm Priority: Secondary Status: Chronic Comments: last visualized 07/2015 ascending aorta 4.0 x 3.7 cm Qualifiers: Presence of rupture: without rupture Qualified Code(s): I71.2 - Thoracic aortic aneurysm, without rupture - Discharge Medications Prescriptions: amLODIPine [Norvasc] 10 mg PO DAILY #30 tablet Atorvastatin [Lipitor] 40 mg PO DAILY #30 tablet Isosorbide MONOnitrate [Isosorbide Mononitrate] 30 mg PO DAILY #30 tablet LORazepam [Ativan] See Taper PO BID #60 tablet Metoprolol XL (24 HR) Succ [Toprol Xl] 100 mg PO DAILY #30 tab.er.24h Home Medications: Fluticasone/Salmeterol [Advair 250-50 Diskus] 1 each IH BID 04/09/15 [History] Ibuprofen [Motrin] 800 mg PO Q8HR 04/09/15 [History] Montelukast [Singulair] 10 mg PO QPM 04/09/15 [History] Albuterol Sulfate [Proair Hfa] 2 puff IH Q4H PRN 03/19/17 [History] Aspirin Enteric Coated [Aspirin EC] 81 mg PO DAILY 03/19/17 [History] Furosemide [Lasix] 40 mg PO DAILY 03/19/17 [History] Lisinopril [Zestril] 40 mg PO DAILY 03/19/17 [History] Tizanidine HCl 4 mg PO BID PRN 03/19/17 [History] Atorvastatin [Lipitor] 40 mg PO DAILY #30 tablet 03/27/17 [Rx] Isosorbide MONOnitrate [Isosorbide Mononitrate] 30 mg PO DAILY #30 tablet [Rx] LORazepam [Ativan] See Taper PO BID #60 tablet 03/27/17 [Rx] Lisinopril [Zestril] 40 mg PO DAILY tablet 03/27/17 [Rx] Metoprolol XL (24 HR) Succ [Toprol Xl] 100 mg PO DAILY #30 tab.er.24h 03/27/17 [ Rx] amLODIPine [Norvasc] 10 mg PO DAILY #30 tablet 03/27/17 [Rx] Allergies/Adverse Reactions: 3 Allergy/AdvReac Type Severity Reaction Status Date / Time budesonide [From Symbicort] Allergy Hives Verified 03/24/17 11:18 codeine Allergy Hives Verified 07/18/15 01:53 Formoterol [From Symbicort] Allergy Hives Verified 03/24/17 11:18 Penicillins [PCN] Allergy Hives Verified 04/09/15 01:16 Procedures/tests Complete & Pending: Procedures Performed prior 72 hours Category Date Time Status CL Cardiac Catheterization [CL] Routine [employer] Interpreter 03/26/17 10:08 Ordered SP pharm nuclear stress Routine Y 03/24/17 08:45 Completed Date of admission: 03/19/17 19:34 Primary care physician: Kindra Holliday, Consults: 03/26/17 08:09 Consult to Cardiology [CONS] Routine Comment: Consulting Provider: Cardiology Bhavani Reason for Consult: LHC due to TID Time Notified: 08:09 Call Completed: Yes Discharging clinician: Denia Razo Anticipated date of discharge: 03/27/17 - Patient Status Disposition: Home, Self-Care Condition: Fair Overall status at discharge: patient is back to baseline - Discharge Instructions Instructions: Isosorbide Mononitrate (By mouth), Chronic Hypertension (DC) Follow Up With: Denia Razo DO [Resident] - 04/02/17 Kindra Holliday, CUSTOMER SERVICE SUPERVISOR [Primary Care Provider] - 04/03/17 2:00 pm - Diet and Activity Diet: low fat, low cholesterol Interval History: Patient is sitting up in chair ready for discharge home. Denies chest pain or shortness of breath. Hospital course: Ms. Moses is a 62 year old female admitted with hypertensive emergency despite taking her home antihypertensives. She was started on norvasc and IV hydralazine PRN. Echo showed EF 65%, moderate concentric left ventricle hypertrophy, mild left ventricle diastolic dysfunction. Stress test showed gated EF 63%. Evidence of TID (ratio 1.47), a finding that can be associated with balanced ischemia and severe multivessel CAD. LHC showed severe 1 vessel CAD. Occluded RCA receives collaterals from LCA. Recommendations included optimal medical therapy and aggressive risk factor modification. The patient is being discharged with blod pressures well controlled and will follow-up with primary care and cardiology outpatient. - Time Spent with Patient Total time spent providing and/or coordinating discharge services: - Constitutional Vitals: Temp Pulse Resp BP Pulse Ox 98.1 F 71 17 160/85 96 03/27/17 07:00 03/27/17 07:00 03/27/17 08:07 03/27/17 07:45 03/27/17 08:07 General appearance: Present: A&O X 3, no acute distress, answers questions appropriately - Head Head exam: Present: atraumatic, normocephalic - Eye Eye exam: Present: PERRL, conjuntiva pink, sclera anicteric Pupils: Present: PERRL - Neck Neck exam general surgery: Present: supple, trachea midline - Respiratory Respiratory exam: Present: decreased breath sounds, wheezes (expiratory) - Cardiovascular Cardiovascular exam: Present: RRR, +S1, +S2. Absent: diastolic murmur, gallop, rubs, systolic murmur - GI/Abdominal GI/Abdominal exam: Present: normal bowel sounds, soft, no peritoneal signs. Absent: distended, tenderness - Extremities Exam Extremities exam: Present: warm. Absent: calf tenderness, cyanotic, pedal edema - Neurological Exam Neurological exam: Present: CN II-XII intact, oriented X3, no focal deficits. Absent: pronater drift, facial droop, speech deficit - Skin Skin exam: Present: dry, intact, normal color, warm <Farhan Zambrano - Last Filed: 03/27/17 16:32> Date of Encounter: 03/27/17 - Discharge Diagnosis (1) Hypertensive emergency Status: Resolved (2) HLD (hyperlipidemia) Status: Chronic Qualifiers: Hyperlipidemia type: mixed hyperlipidemia Qualified Code(s): E78.2 - Mixed hyperlipidemia (3) Thoracic aortic aneurysm Status: Chronic Qualifiers: Presence of rupture: without rupture Qualified Code(s): I71.2 - Thoracic aortic aneurysm, without rupture (4) Tobacco abuse Priority: Secondary Status: Chronic (5) Morbid obesity with BMI of 40.0-44.9, adult Status: Chronic Procedures/tests Complete & Pending: Procedures Performed prior 72 hours Category Date Time Status CL Cardiac Catheterization [CL] Routine [employer] Interpreter 03/26/17 10:08 Ordered Date of admission: 03/19/17 19:34 Primary care physician: Kindra Holliday, Consults: 03/26/17 08:09 Consult to Cardiology [CONS] Routine Comment: Consulting Provider: Cardiology Bhavani Reason for Consult: LHC due to TID Time Notified: 08:09 Call Completed: Yes Hospital course: Ms. Moses is a 62 year old female - Time Spent with Patient Total time spent providing and/or coordinating discharge services: 37min - Constitutional Vitals: Temp Pulse Resp BP Pulse Ox 98.1 F 71 17 160/85 96 03/27/17 07:00 03/27/17 07:00 03/27/17 08:07 03/27/17 07:45 03/27/17 08:07 - Attending Attestation I examined this patient and my medical decision-making was reviewed with the Resident Physician on 03/27/17. I agree with the documented findings, disposition and treatment plan as described except to the extent set forth below. Ms Moses has been admitted for hypertensive emergency. She underwent stress test which was abnormal and she had subsequent LHC. This showed 100% occluded RCA with collaterals from LCA. She was to have medical management. Today she feels well. She is afebrile with stable vitals. Exam Alert. Comfortable Heart reg No wheeze Abd soft Plan D/C home today. Follow up with PCP.
[2017-03-27] MEDS: Aspirin 81 MG TAB.CHEW PO SCH (10:03)
[2017-03-27] MEDS: tiZANidine 4 MG TABLET PO SCH (10:03)
[2017-03-27] MEDS: *HR* HYDROcodone/Acet 5/325 mg TABLET PO PRN (10:04)
[2017-03-27] MEDS: Metoprolol XL (24 HR) Succ 50 MG TAB.ER.24H PO SCH (10:05)
[2017-03-27] MEDS: Isosorbide MONOnitrate (24 HR) 30 MG TAB.ER.24H PO SCH (10:05)
[2017-03-27] MEDS: amLODIPine 5 MG TABLET PO SCH (10:05)
[2017-03-27] MEDS: *HR* LORazepam 0.5 MG TABLET PO SCH (10:05)
[2017-03-27] MEDS: Furosemide 40 MG TABLET PO SCH (10:05)
[2017-03-27] MEDS: Lisinopril 20 MG TABLET PO SCH (10:05)
[2017-03-27] MEDS: Nicotine 21 MG PATCH.TD24 TD SCH (10:06)
[2017-03-27] MEDS ORDERED: FLUARIX QUAD 2017-18 36MOS UP/PF 0.5 ML SYRINGE IM ONE (12:17)
== END 2017-03-27 16:22 | disposition home or self-care (01) | DRG 287 ==
LOC: 2NENU 11:17 → EMEROO 11:17 → SUATTDRO 19:34 → 2NENU 20:19
PROVIDERS: ADMIT Internal Medicine Hematology & Oncology; ATTEND Internal Medicine

== ENCOUNTER 2021-07-25 01:00 | Inpatient (IN) ==
[2021-07-25] MEDS ORDERED: Albuterol 2.5 MG/3 ML NEBULIZER IH ONE (01:29)
[2021-07-25] MEDS ORDERED: predniSONE 20 MG TABLET PO ONE (01:29)
[2021-07-25] MEDS ORDERED: Ipratropium/Albuterol Neb 3 ML IH ONE (01:29)
[2021-07-25 01:44] LABS: Basophils # 0.1 K/mcL (0.0-0.2); Basophils % 0.9 %; Eosinophils # 0.2 K/mcL (0.0-0.6); Eosinophils % 2.2 %; Hematocrit 42.2 % (35.3-44.9); Hemoglobin 13.3 g/dL (11.5-15.4); Immature Granulocytes % 0.5 % (0-4); Lymphocytes # 2.2 K/mcL (0.6-4.6); Lymphocytes % 21.4 %; Mean Corpuscular HGB Conc 31.5 g/dL (31.6-35.5); Mean Corpuscular Hemoglobin 29.1 pg (28.0-33.3); Mean Corpuscular Volume 92.3 fL (83.0-100.0); Monocytes # 0.8 K/mcL (0.0-1.3); Monocytes % 8.2 %; Neutrophils # 6.8 K/mcL (1.6-8.9); Platelet Count 305 K/mcL (140-400); Red Blood Count 4.57 M/mcL (3.82-4.97); Red Cell Distribution Width 15.9 % (11.5-14.5); Segmented Neutrophils % 66.8 %; White Blood Count 10.2 K/mcL (4.3-11.1)
[2021-07-25 02:02] LABS: BUN/Creatinine Ratio 22 (6-26); Blood Urea Nitrogen 15 mg/dL (8-23); Calcium 8.8 mg/dL (8.6-10.3); Carbon Dioxide 29 mEq/L (23-29); Chloride 103 mEq/L (98-107); Glucose 118 mg/dL (70-105); Osmolality,Calculated 292 (280-300); Potassium 3.4 mEq/L (3.5-5.1); Sodium 140 mEq/L (136-145); Troponin I < 0.03 ng/mL (< 0.04); eGFR For African Americans > 60 (> 60); eGFR For Non-African Americans > 60 (> 60)
[2021-07-25 02:09] LABS: Influenza A PCR Negative (Negative); Influenza B PCR Negative (Negative); Resp. Syncytial Virus PCR Negative (Negative)
[2021-07-25 02:10] LABS: SARS-CoV-2 by PCR (In House) Negative (Negative)
[2021-07-25] MEDS ORDERED: Albuterol 2.5 MG/3 ML NEBULIZER IH STA (04:16)
[2021-07-25] MEDS ORDERED: Naloxone 0.4 MG/ML INJ IVP PRN (04:43)
[2021-07-25 04:57] LABS: VBG HCO3 29 mEq/L (21-27); VBG PCO2 52 mmHg (41-51); VBG PH 7.35 pH Units (7.32-7.42); VBG PO2 193 mmHg (25-50)
[2021-07-25] MEDS ORDERED: Melatonin 3 MG TABLET PO PRN (05:10)
[2021-07-25] MEDS ORDERED: methylPREDNISolone 125 MG/2 ML VIAL IVP ONE (05:13)
[2021-07-25] MEDS ORDERED: Ibuprofen 400 MG TABLET PO PRN (06:00)
[2021-07-25] MEDS ORDERED: Acetaminophen 325 MG TABLET PO PRN (06:00)
[2021-07-25] MEDS: Ipratropium/Albuterol Neb 3 ML IH SCH ×5 (08:10→23:37)
[2021-07-25] MEDS: Budesonide/Formoterol 160/4.5 1 PUFF INH IH SCH ×2 (08:10→20:29)
[2021-07-25] MEDS: Multivit/Ca/Min/Fe/FA 1 TAB TABLET PO SCH (08:43)
[2021-07-25] MEDS: Insulin LISPRO 300 UNITS/3 ML VIAL SUBQ SCH ×3 (08:44→18:04)
[2021-07-25] MEDS: methylPREDNISolone 125 MG/2 ML VIAL IVP SCH ×3 (08:44→18:24)
[2021-07-25] MEDS: Furosemide 40 MG/4 ML VIAL IVP SCH (08:45)
[2021-07-25] MEDS: Aspirin 81 MG TAB.CHEW PO SCH (08:45)
[2021-07-25] MEDS: Nicotine 21 MG PATCH.TD24 TD SCH (08:45)
[2021-07-25] MEDS: lisinopriL 20 MG TABLET PO SCH (08:45)
[2021-07-25] MEDS: Metoprolol XL (24 HR) Succ 25 MG TAB.ER.24H PO SCH (08:45)
[2021-07-25] MEDS: Chlorhexidine Rinse 15 ML MOUTHWASH MM SCH ×2 (08:45→20:19)
[2021-07-25] MEDS: Azithromycin 250 MG TABLET PO SCH (08:45)
[2021-07-25] MEDS: *HR* Enoxaparin 40 MG/0.4 ML SYRINGE SQ SCH ×2 (08:46→20:19)
[2021-07-25 09:25] LABS: Basophils % 0.2 %; Hematocrit 42.4 % (35.3-44.9); Hemoglobin 13.4 g/dL (11.5-15.4); Immature Granulocytes % 0.8 % (0-4); Lymphocytes # 0.7 K/mcL (0.6-4.6); Lymphocytes % 7.9 %; Mean Corpuscular HGB Conc 31.6 g/dL (31.6-35.5); Mean Corpuscular Hemoglobin 29.4 pg (28.0-33.3); Mean Platelet Volume 9.4 fL (9.4-12.4); Monocytes # 0.1 K/mcL (0.0-1.3); Monocytes % 1.4 %; Neutrophils # 8.3 K/mcL (1.6-8.9); Platelet Count 312 K/mcL (140-400); Red Blood Count 4.56 M/mcL (3.82-4.97); Red Cell Distribution Width 15.9 % (11.5-14.5); Segmented Neutrophils % 89.7 %; White Blood Count 9.3 K/mcL (4.3-11.1)
[2021-07-25 09:37] LABS: Prothrombin Time 11.3 Seconds (9.4-12.1)
[2021-07-25 09:55] LABS: Alanine Aminotransferase 22 Units/L (7-52); Albumin 4.2 g/dL (3.5-5.7); Albumin/Globulin Ratio 1.6 (1.1-2.2); Alkaline Phosphatase 112 Units/L (34-104); Aspartate Amino Transferase 15 Units/L (13-39); BUN/Creatinine Ratio 24 (6-26); Bilirubin,Total 0.3 mg/dL (0.3-1.0); Blood Urea Nitrogen 16 mg/dL (8-23); Calcium 9.2 mg/dL (8.6-10.3); Carbon Dioxide 28 mEq/L (23-29); Chloride 101 mEq/L (98-107); Globulin 2.6 g/dL (2.4-3.5); Glucose 178 mg/dL (70-105); Osmolality,Calculated 294 (280-300); Phosphorous 3.9 mg/dL (2.7-4.5); Potassium 3.7 mEq/L (3.5-5.1); Sodium 139 mEq/L (136-145); Total Protein 6.8 g/dL (6.4-8.9); eGFR For African Americans > 60 (> 60); eGFR For Non-African Americans > 60 (> 60)
[2021-07-25 10:34] LABS: Estimated Average Glucose 146 mg/dl; Hemoglobin A1C 6.7 %
[2021-07-25] MEDS: tiZANidine 4 MG TABLET PO PRN (13:06)
[2021-07-25] MEDS: Isosorbide MONOnitrate (24 HR) 30 MG TAB.ER.24H PO SCH (20:18)
[2021-07-26] MEDS: methylPREDNISolone 125 MG/2 ML VIAL IVP SCH ×5 (00:08→23:58)
[2021-07-26 01:12] LABS: Hematocrit 38.4 % (35.3-44.9); Hemoglobin 11.9 g/dL (11.5-15.4); Mean Corpuscular Hemoglobin 28.6 pg (28.0-33.3); Mean Corpuscular Volume 92.3 fL (83.0-100.0); Mean Platelet Volume 9.3 fL (9.4-12.4); Platelet Count 322 K/mcL (140-400); Red Blood Count 4.16 M/mcL (3.82-4.97); Red Cell Distribution Width 16.1 % (11.5-14.5)
[2021-07-26 01:37] LABS: BUN/Creatinine Ratio 29 (6-26); Blood Urea Nitrogen 26 mg/dL (8-23); Calcium 9.1 mg/dL (8.6-10.3); Carbon Dioxide 26 mEq/L (23-29); Chloride 101 mEq/L (98-107); Glucose 210 mg/dL (70-105); Osmolality,Calculated 295 (280-300); Potassium 3.8 mEq/L (3.5-5.1); Sodium 137 mEq/L (136-145); eGFR For African Americans > 60 (> 60); eGFR For Non-African Americans > 60 (> 60)
[2021-07-26] MEDS: Ipratropium/Albuterol Neb 3 ML IH SCH ×5 (03:35→20:10)
[2021-07-26] MEDS ORDERED: Perflutren Lipid Microsphere 1.3 ML in 0.9 % Sodium Chloride 8.7 ML IVP PRN (07:29)
[2021-07-26] MEDS: Budesonide/Formoterol 160/4.5 1 PUFF INH IH SCH ×2 (07:37→20:10)
[2021-07-26] MEDS: Azithromycin 250 MG TABLET PO SCH (08:03)
[2021-07-26] MEDS: Isosorbide MONOnitrate (24 HR) 30 MG TAB.ER.24H PO SCH ×2 (08:04→20:33)
[2021-07-26] MEDS: Nicotine 21 MG PATCH.TD24 TD SCH (08:04)
[2021-07-26] MEDS: *HR* Enoxaparin 40 MG/0.4 ML SYRINGE SQ SCH (08:05)
[2021-07-26] MEDS: Aspirin 81 MG TAB.CHEW PO SCH (08:05)
[2021-07-26] MEDS: Multivit/Ca/Min/Fe/FA 1 TAB TABLET PO SCH (08:05)
[2021-07-26] MEDS: tiZANidine 4 MG TABLET PO PRN (08:05)
[2021-07-26] MEDS: BuPROPion XL (24 HR) 150 MG TABLET PO SCH (08:05)
[2021-07-26] MEDS: Furosemide 40 MG/4 ML VIAL IVP SCH (08:05)
[2021-07-26] MEDS: Chlorhexidine Rinse 15 ML MOUTHWASH MM SCH ×2 (08:05→20:33)
[2021-07-26] MEDS: Metoprolol XL (24 HR) Succ 25 MG TAB.ER.24H PO SCH (08:10)
[2021-07-26] MEDS: amLODIPine 5 MG TABLET PO SCH (08:11)
[2021-07-26] MEDS: Insulin LISPRO 300 UNITS/3 ML VIAL SUBQ SCH ×3 (08:12→20:23)
[2021-07-26] MEDS: lisinopriL 20 MG TABLET PO SCH (08:15)
[2021-07-27] MEDS: Ipratropium/Albuterol Neb 3 ML IH SCH ×7 (00:06→23:39)
[2021-07-27 02:16] LABS: Hemoglobin 12.2 g/dL (11.5-15.4); Mean Corpuscular HGB Conc 31.3 g/dL (31.6-35.5); Mean Corpuscular Hemoglobin 29.1 pg (28.0-33.3); Mean Corpuscular Volume 93.1 fL (83.0-100.0); Mean Platelet Volume 9.5 fL (9.4-12.4); Platelet Count 342 K/mcL (140-400); Red Blood Count 4.19 M/mcL (3.82-4.97); Red Cell Distribution Width 16.4 % (11.5-14.5)
[2021-07-27 02:29] LABS: White Blood Count 18.2 K/mcL (4.3-11.1)
[2021-07-27 02:34] LABS: BUN/Creatinine Ratio 50 (6-26); Blood Urea Nitrogen 43 mg/dL (8-23); Carbon Dioxide 29 mEq/L (23-29); Chloride 100 mEq/L (98-107); Glucose 158 mg/dL (70-105); Osmolality,Calculated 300 (280-300); Potassium 4.3 mEq/L (3.5-5.1); Sodium 138 mEq/L (136-145); eGFR For African Americans > 60 (> 60); eGFR For Non-African Americans > 60 (> 60)
[2021-07-27] MEDS: *HR* Enoxaparin 40 MG/0.4 ML SYRINGE SQ SCH (06:30)
[2021-07-27] MEDS: methylPREDNISolone 125 MG/2 ML VIAL IVP SCH ×2 (07:00→15:33)
[2021-07-27] MEDS: Budesonide/Formoterol 160/4.5 1 PUFF INH IH SCH ×2 (07:43→20:13)
[2021-07-27] MEDS: Isosorbide MONOnitrate (24 HR) 30 MG TAB.ER.24H PO SCH ×2 (08:47→20:10)
[2021-07-27] MEDS: Azithromycin 250 MG TABLET PO SCH (08:47)
[2021-07-27] MEDS: Aspirin 81 MG TAB.CHEW PO SCH (08:47)
[2021-07-27] MEDS: Metoprolol XL (24 HR) Succ 25 MG TAB.ER.24H PO SCH (08:47)
[2021-07-27] MEDS: BuPROPion XL (24 HR) 150 MG TABLET PO SCH (08:48)
[2021-07-27] MEDS: tiZANidine 4 MG TABLET PO PRN ×2 (08:48→14:56)
[2021-07-27] MEDS: lisinopriL 20 MG TABLET PO SCH (08:48)
[2021-07-27] MEDS: Multivit/Ca/Min/Fe/FA 1 TAB TABLET PO SCH (08:48)
[2021-07-27] MEDS: Chlorhexidine Rinse 15 ML MOUTHWASH MM SCH (08:48)
[2021-07-27] MEDS: amLODIPine 5 MG TABLET PO SCH (08:48)
[2021-07-27] MEDS: Nicotine 21 MG PATCH.TD24 TD SCH (08:49)
[2021-07-27] MEDS: Insulin LISPRO 300 UNITS/3 ML VIAL SUBQ SCH ×3 (08:49→19:26)
[2021-07-27] MEDS: Furosemide 40 MG/4 ML VIAL IVP SCH (09:00)
[2021-07-27] MEDS ORDERED: predniSONE 20 MG TABLET PO ONE (12:50)
[2021-07-27] MEDS: predniSONE 20 MG TABLET PO SCH (14:57)
[2021-07-28] MEDS: Nicotine 21 MG PATCH.TD24 TD SCH (01:03)
[2021-07-28 01:31] LABS: Hematocrit 41.7 % (35.3-44.9); Mean Corpuscular HGB Conc 31.2 g/dL (31.6-35.5); Mean Corpuscular Hemoglobin 29.1 pg (28.0-33.3); Mean Corpuscular Volume 93.5 fL (83.0-100.0); Mean Platelet Volume 9.3 fL (9.4-12.4); Platelet Count 341 K/mcL (140-400); Red Blood Count 4.46 M/mcL (3.82-4.97); Red Cell Distribution Width 16.2 % (11.5-14.5); White Blood Count 14.8 K/mcL (4.3-11.1)
[2021-07-28 01:47] LABS: BUN/Creatinine Ratio 44 (6-26); Blood Urea Nitrogen 48 mg/dL (8-23); Carbon Dioxide 27 mEq/L (23-29); Chloride 102 mEq/L (98-107); Glucose 180 mg/dL (70-105); Osmolality,Calculated 307 (280-300); Potassium 3.9 mEq/L (3.5-5.1); Sodium 140 mEq/L (136-145); eGFR For African Americans > 60 (> 60); eGFR For Non-African Americans 50 (> 60)
[2021-07-28] MEDS: Ipratropium/Albuterol Neb 3 ML IH SCH ×3 (03:50→11:19)
[2021-07-28] MEDS: *HR* Enoxaparin 40 MG/0.4 ML SYRINGE SQ SCH (05:33)
[2021-07-28] MEDS: Budesonide/Formoterol 160/4.5 1 PUFF INH IH SCH (07:41)
[2021-07-28] MEDS: Insulin LISPRO 300 UNITS/3 ML VIAL SUBQ SCH ×2 (07:47→11:33)
[2021-07-28] MEDS: Multivit/Ca/Min/Fe/FA 1 TAB TABLET PO SCH (07:56)
[2021-07-28] MEDS: amLODIPine 5 MG TABLET PO SCH (07:56)
[2021-07-28] MEDS: BuPROPion XL (24 HR) 150 MG TABLET PO SCH (07:56)
[2021-07-28] MEDS: Isosorbide MONOnitrate (24 HR) 30 MG TAB.ER.24H PO SCH (07:56)
[2021-07-28] MEDS: Aspirin 81 MG TAB.CHEW PO SCH (07:57)
[2021-07-28] MEDS: Azithromycin 250 MG TABLET PO SCH (07:57)
[2021-07-28] MEDS: Metoprolol XL (24 HR) Succ 25 MG TAB.ER.24H PO SCH (07:57)
[2021-07-28] MEDS: lisinopriL 20 MG TABLET PO SCH (07:57)
[2021-07-28] MEDS: predniSONE 20 MG TABLET PO SCH (07:57)
[2021-07-28] MEDS ORDERED: Furosemide 40 MG TABLET PO SCH (09:00)
[2021-07-28 11:21] VITALS: BP 156/78; PULSE 74; TEMP 98
[2021-07-28 11:23] VITALS: O2SAT 97
== END 2021-07-28 12:51 | disposition home or self-care (01) | DRG 291 ==
LOC: EMEROOARM 01:00 → CDU 01:00 → SUATTDRO 04:56 → CDU 07:45 → 2ANU 08:01 → SUATTDRO 07-26 12:30
PROVIDERS: ADMIT Internal Medicine; ATTEND Internal Medicine